=== PATIENT | male | born 1945 | race Caucasian/White ===

== ENCOUNTER → 2020-12-05 | Outpatient (CLI) | payer MEDICARE, BC ==
[2020-12-05 15:20] LABS: Basophils # (A) 0.1 k/uL (0-0.2); Basophils % (A) 1 %; Eosinophils # (A) 0.2 k/uL (0-0.7); Eosinophils % (A) 3 %; HCT 43.5 % (39.0-53.0); HGB 14.7 gm/dL (13.0-17.5); Lymphocytes # (A) 2.1 k/uL (1.0-4.8); Lymphocytes % (A) 30 %; MCH 30.7 pg (25.0-35.0); MCHC 33.9 g/dL (31.0-37.0); MCV 90.5 fL (80.0-100.0); Mean Platelet Volume 8.1; Monocytes # (A) 0.4 k/uL (0-1.0); Monocytes % (A) 6 %; Neutrophils # (A) 4.2 k/uL (1.3-7.7); Neutrophils % (A) 59 %; Platelet Count 176 k/uL (150-450); WBC 7.1 k/uL (3.8-10.6)
[2020-12-05 15:29] LABS: Potassium 4.1 mmol/L (3.5-5.1)
== END | disposition home or self-care (01) ==
LOC: LABPAT 14:41
PROVIDERS: ATTEND Surgery
DX: Z01.818 Encounter for other preprocedural examination (principal); I74.3 Embolism and thrombosis of arteries of the lower extremities
CPT/HCPCS: 80051; 82565; 84520; 85025

== ENCOUNTER → 2020-12-19 | Day surgery (SDC) | payer MEDICARE, BC, OTHER ==
[2020-12-14 13:23] VITALS: BMI 33.9
[~2020-12-19] MED LIST: ALPRAZolam 0.25 MG TAB PO PRN; ASPIRIN 325 MG TAB PO PRN; HEPARIN SODIUM 1,000 UN/ML (10ML VL) ONE; INSULIN ASPART (NovoLOG) 100 UNIT/ML VIAL SQ ONE; IOPAMIDOL-250 100ML BTL INTRAARTER ONE; LIDOCAINE 1% INJ 10MG/ML (20 ML MDV) ONE; LIDOCAINE 1% INJ 10MG/ML (20 ML MDV) SQ ONE; SODIUM CHLORIDE 0.9% 1,000 ML IV ONE; SODIUM CHLORIDE 0.9% 1,000 ML in EMPTY BAG 1 BAG IV ONE; fentaNYL (PF) 50 MCG/ML 2 ML AMP IVP ONE; fentaNYL (PF) 50 MCG/ML 2 ML AMP ONE
[2020-12-19 06:21] LABS: Glucose,Whole Blood 261 mg/dL (75-99)
[2020-12-19 06:31] VITALS: RESP 16; TEMP 98.7
[2020-12-19] MEDS: MIDAZOLAM 2 MG/2 ML VIAL IVP ONE ×2 (07:30→07:41)
--- NOTE | 2020-12-19 08:45 | P.OP ---
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 with reconstitution at the anterior tibial artery 2 vessel runoff to the ankle Procedure(s) Performed: Aortagram with right lower extremity selective iliofemoral and tibial angiograms 2nd order catheter placement Ultrasound guided left common femoral artery access Percutaneous closure of left common femoral artery access with Vascade Anesthesia: local, other (sedation x 30mins) Surgeon: Moy Pollard Estimated Blood Loss (ml): 5 Pathology: none sent Condition: stable Disposition: PACU Indications for Procedure: 75-year-old gentleman who presented to the office secondary to right lower extremity pain with ambulation. Patient states he is unable to walk greater than 100 feet without severe cramping in his calf and pain. He did have previous workup and attempted revascularization at a different hospital a couple months ago without success. He states he would like another opinion and was told that he needs a bypass. His ABIs demonstrated significant disease in the right lower extremity with 0.5 measurements. He presents today for angiogram and possible revascularization. Operative Findings: Aorta: Patent at the bifurcation without any significant atherosclerotic disease or stenosis. Iliac: Bilateral common iliac and internal iliac arteries were patent without any significant calcification or atherosclerotic disease. The right external iliac artery does have a small area of dense calcification and mild stenosis measuring 20%. The left external iliac artery is patent without significant disease. Femoral: Bilateral common femoral arteries are patent with posterior calcification noted on the right with stenosis measuring up to 30%. The profundus femoris bilaterally are patent and the superficial femoral artery bilaterally has some calcific disease but is patent at the takeoff. The right superficial femoral artery does occlude midway through the thigh and reconstitution noted at the superficial femoral but the artery was dilated and likely dissected there is also another occlusion at the popliteal and this doesn't reconstitute until below the knee at the anterior tibial and posterior tibial arteries. There is large amount of collateralization noted throughout the right thigh. Popliteal: Right popliteal artery is occluded Tibials: Right anterior tibial artery and posterior tibial artery reconstitution noted with flow to the ankle. There is mild atherosclerotic disease noted throughout but difficult to delineate due to lack of contrast. Description of Procedure: Operative narrative: After written informed consent was obtained the patient all risks benefits competitions were described the patient is brought to the [facility] and laid in a supine position. The area of the left groin was prepped and draped in the usual sterile fashion. Local anesthesia with moderate sedation was performed with continuous pulse ox monitoring and EKG monitoring. Utilizing ultrasound the left common femoral artery was visualized and shown to be patent without any significant plaque. Utilizing a multipurpose needle under ultrasound guidance the artery was accessed. Guidewire was placed followed by 6-[place] sheath. 035 Glidewire was then placed into the aorta followed by a rim catheter. Angiogram was then obtained of the aorta. Catheter was then placed into the right common iliac artery and 035 Glidewire was placed followed by a quick cross catheter due to the tortuosity of the vessels in order to get across into the right common iliac artery. Selective angiogram was then obtained of the right lower extremity iliofemoral, femoral popliteal and tibials. Due to the extent of the disease and reconstitution right at a bifurcation it was determined that patient would likely need a bypass and therefore no attempts to cross the lesion and revascularize was performed. Once completed all guidewires, catheters and sheaths were removed and Vascade closure device esd placed without issue and pressure was placed for hemostasis. Patient tolerated procedure well was sent to PACU for recovery Plan - Discharge Summary Discharge Rx Participant: No New Discharge Prescriptions: No Action Clopidogrel [Plavix] 75 mg PO DAILY amLODIPine [Norvasc] 10 mg PO DAILY Levothyroxine Sodium [Synthroid] 200 mcg PO DAILY Atorvastatin [Lipitor] 80 mg PO HS glipiZIDE [Glucotrol] 20 mg PO BID Gabapentin [Neurontin] 300 mg PO TID Discharge Medication List Atorvastatin [Lipitor] 80 mg PO HS 12/14/20 [History] Clopidogrel [Plavix] 75 mg PO DAILY 12/14/20 [History] Gabapentin [Neurontin] 300 mg PO TID 12/14/20 [History] Levothyroxine Sodium [Synthroid] 200 mcg PO DAILY 12/14/20 [History] amLODIPine [Norvasc] 10 mg PO DAILY 12/14/20 [History] glipiZIDE [Glucotrol] 20 mg PO BID 12/14/20 [History] Follow up Appointment(s)/Referral(s): Moy Pollard DO [STAFF PHYSICIAN] - 1 Week Patient Instructions/Handouts: Moderate Sedation (DC), Angiogram (DC) Activity/Diet/Wound Care/Special Instructions: No lifting/pushing/pulling greater than 10 lbs for 3 days. Avoid frequent use of full flight stairs for 2 days. You may shower tomorrow. No soaking in water for 3 days (such as tub or swim). You may drive . Discharge Disposition: HOME SELF-CARE
[2020-12-19 11:04] VITALS: BP 145/67; PULSE 64
--- NOTE | 2020-12-20 11:14 | IR ---
Fluoroscopy HISTORY: Peripheral vascular occlusive disease 3.4 minutes fluoroscopy time supplied to the referring clinician. 230 intraoperative C-arm images do cument the procedure. See dictated report from vascular surgery.
== END | disposition home or self-care (01) ==
LOC: CATHCVL 05:51
PROVIDERS: ATTEND Surgery
DX: I70.211 Atherosclerosis of native arteries of extremities with intermittent claudication, right leg (principal); I70.92 Chronic total occlusion of artery of the extremities; I77.1 Stricture of artery; E11.51 Type 2 diabetes mellitus with diabetic peripheral angiopathy without gangrene; I10 Essential (primary) hypertension; Z79.84 Long term (current) use of oral hypoglycemic drugs; Z79.02 Long term (current) use of antithrombotics/antiplatelets; Z79.890 Hormone replacement therapy; Z79.899 Other long term (current) drug therapy
CPT/HCPCS: 36245; 75625; 75716; 76937; 87635; C1894; C1769 ×3; C1887; C1760; J2250; J2001; J3010; Q9966

== ENCOUNTER → 2022-06-17 | Outpatient (CLI) | payer MEDICARE, BC, OTHER ==
--- NOTE | 2022-06-17 15:34 | US ---
EXAMINATION TYPE: US kidneys/renal and bladder DATE OF EXAM: 06/17/2022 COMPARISON: NONE CLINICAL HISTORY: N18.9 CHRONIC KIDNEY DISEASE. Abnormal labs. No pain. EXAM MEASUREMENTS: Right Kidney: 10.4 x 5.7 x 6.0 cm Left Kidney: 10.9 x 4.7 x 5.9 cm Right Kidney: No hydronephrosis or masses seen . No shadowing calculi. Left Kidney: Inferior lateral cyst measuring 1.2 x 1.1 x 0.8 cm . No contour deforming solid mass. N o shadowing calculi. Bladder: distended, anechoic Bilateral Jets not seen Incidental finding: Right liver both cyst- 7.0 x 6.8 x 7.5 cm 1. IMPRESSION: 2. No hydronephrosis or shadowing renal calculi. 3. Left renal cyst. 4. Hepatic cyst.
== END | disposition home or self-care (01) ==
LOC: RADUSWWP 14:50
DX: N18.9 Chronic kidney disease, unspecified (principal)
CPT/HCPCS: 76770

== ENCOUNTER 2023-03-31 10:19 | Inpatient (IN) | payer OTHER, MEDICARE ==
--- NOTE | 2023-03-31 11:01 | ED ---
General Adult HPI - General Chief complaint: Extremity Injury, Lower Stated complaint: rt foot toe wound Time Seen by Provider: 03/31/23 10:44 Source: patient, family, RN notes reviewed Mode of arrival: ambulatory Limitations: no limitations - History of Present Illness Initial comments: 77-year-old male presents emergency Department chief complaint of right foot toe, foot pain, infection. Patient states that he is scheduled for bypass surgery on his right leg and amputation of his fifth digit. Patient states that initially started having a blister and which was debrided by Dr. Pollard and was healing well but then developed worsening symptoms. They attempted to place a stent 2 weeks ago at [place]. Patient was told that he would need bypass on his right leg and amputation of his fifth digit Patient states he's now developed worsening pain, redness, deterioration of his toe. He states there is a foul odor. Patient has a known diabetic. - Related Data Home Medications Medication Instructions Recorded Confirmed Atorvastatin [Lipitor] 80 mg PO HS 12/14/20 12/19/20 Clopidogrel [Plavix] 75 mg PO DAILY 12/14/20 12/14/20 Gabapentin [Neurontin] 300 mg PO TID 12/14/20 12/19/20 Levothyroxine Sodium [Synthroid] 200 mcg PO DAILY 12/14/20 12/19/20 amLODIPine [Norvasc] 10 mg PO DAILY 12/14/20 12/19/20 glipiZIDE [Glucotrol] 20 mg PO BID 12/14/20 12/19/20 Allergies Allergy/AdvReac Type Severity Reaction Status Date / Time No Known Allergies Allergy Verified 03/31/23 10:39 Review of Systems ROS Statement: Those systems with pertinent positive or pertinent negative responses have been documented in the HPI. ROS Other: All systems not noted in ROS Statement are negative. Past Medical History Past Medical History: Coronary Artery Disease (CAD), Diabetes Mellitus, Hyperlipidemia, Hypertension, Neurologic Disorder, Renal Disease, Vascular Disorder Additional Past Medical History / Comment(s): kidney issues r/t past use of metformin. neuropathy feet History of Any Multi-Drug Resistant Organisms: None Reported Past Surgical History: Appendectomy, Coronary Bypass/CABG Additional Past Surgical History / Comment(s): triple bypass 2018. aortic valve replacement 2018 Past Anesthesia/Blood Transfusion Reactions: Postoperative Nausea & Vomiting (PONV) Past Psychological History: No Psychological Hx Reported Smoking Status: Former smoker Past Alcohol Use History: Occasional Past Drug Use History: None Reported General Exam Limitations: no limitations General appearance: alert, in no apparent distress Head exam: Present: atraumatic, normocephalic, normal inspection Neck exam: Present: normal inspection. Absent: tenderness, meningismus, lymphadenopathy Respiratory exam: Present: normal lung sounds bilaterally. Absent: respiratory distress, wheezes, rales, rhonchi, stridor Cardiovascular Exam: Present: regular rate, normal rhythm, normal heart sounds. Absent: systolic murmur, diastolic murmur, rubs, gallop, clicks Extremities exam: Present: other (Right foot fifth digit there is gangrenous changes, surrounding erythema, tenderness with palpation in distal metatarsal region) Course Vital Signs 03/31/23 10:33 Temperature 99.0 F Pulse Rate 71 Respiratory 18 Rate Blood Pressure 152/71 O2 Sat by Pulse 96 Oximetry EKG Findings - EKG Comments: EKG Findings:: EKG performed at 11:28 normal sinus rhythm with a rate of 67 SD 190 QRS 76 QT/QTC 398/420 - EKG Results: EKG: interpreted by ALEXI Medical Decision Making - Medical Decision Making Was pt. sent in by a medical professional or institution (, PA, CRYOGENICS REPAIRER, urgent care, hospital, or intermediate...) When possible be specific @ -No Did you speak to anyone other than the patient for history (EMS, parent, family, police, friend...)? What history was obtained from this source @ -No Did you review nursing and triage notes (agree or disagree)? Why? @ -I reviewed and agree with nursing and triage notes Were old charts reviewed (outside hosp., previous admission, EMS record, old EKG, old radiological studies, urgent care reports/EKG's, intermediate records)? Report findings @ -No old charts were reviewed Differential Diagnosis (chest pain, altered mental status, abdominal pain women, abdominal pain men, vaginal bleeding, weakness, fever, dyspnea, syncope, headache, dizziness, GI bleed, back pain, seizure, CVA, palpatations, mental health, musculoskeletal)? @ -This, gangrene, osteomyelitis EKG interpreted by me (3pts min.). @ -As above X-rays interpreted by me (1pt min.). @ -X-ray foot shows osteomyelitis changes of the fifth digit CT interpreted by me (1pt min.). @ -None done U/S interpreted by me (1pt. min.). @ -None done What testing was considered but not performed or refused? (CT, X-rays, U/S, labs)? Why? @ -None What meds were considered but not given or refused? Why? @ -None Did you discuss the management of the patient with other professionals (professionals i.e. DrSammi, PA, CRYOGENICS REPAIRER, lab, RT, psych nurse, hospice social worker, sap integration architect, teacher, engineering officer, rn case manager)? Give summary @ -I did discuss case with hospitalist and vascular surgery. Was smoking cessation discussed for >3mins.? @ -No Was critical care preformed (if so, how long)? @ -No Were there social determinants of health that impacted care today? How? (Homelessness, low income, unemployed, alcoholism, drug addiction, transportation, low edu. Level, literacy, decrease access to med. care, custodial, rehab)? @ -No Was there de-escalation of care discussed even if they declined (Discuss DNR or withdrawal of care, Hospice)? DNR status @ -No What co-morbidities impacted this encounter? (DM, HTN, Smoking, COPD, CAD, Cancer, CVA, ARF, Chemo, Hep., AIDS, mental health diagnosis, sleep apnea, morbid obesity)? @ -Diabetes, renal disease, hypertension Was patient admitted / discharged? Hospital course, mention meds given and route, prescriptions, significant lab abnormalities, going to OR and other perti nent info. @ -Admitted patient has evidence of osteomyelitis, cellulitis. Patient does have gangrene of the digit. Patient started on dual antibiotic therapy. Patient will be admitted to medicine with vascular consult. Undiagnosed new problem with uncertain prognosis? @ -No Drug Therapy requiring intensive monitoring for toxicity (Heparin, Nitro, Insulin, Cardizem)? @ -No Were any procedures done? @ -No Diagnosis/symptom? @ -Osteomyelitis, gangrene digit Acute, or Chronic, or Acute on Chronic? @ -Acute Uncomplicated (without systemic symptoms) or Complicated (systemic symptoms)? @ -Complicated. Side effects of treatment? @ -No Exacerbation, Progression, or Severe Exacerbation? @ -No Poses a threat to life or bodily function? How? (Chest pain, [place], CA, pneumonia, PE, COPD, DKA, ARF, appy, cholecystitis, CVA, Diverticulitis, Homicidal, Suicidal, threat to staff... and all critical care pts) @ -No - Lab Data Result diagrams: 03/31/23 11:24 03/31/23 11:24 Lab Results 03/31/23 03/31/23 03/31/23 Range/Units 11:24 11:24 11:24 WBC 10.6 (3.8-10.6) k/uL RBC 4.38 (4.30-5.90) m/uL Hgb 13.5 (13.0-17.5) gm/dL Hct 40.2 (39.0-53.0) % MCV 91.7 (80.0-100.0) fL MCH 30.8 (25.0-35.0) pg MCHC 33.6 (31.0-37.0) g/dL RDW 15.5 (11.5-15.5) % Plt Count 159 (150-450) k/uL MPV 8.8 Neutrophils % 75 % Lymphocytes % 14 % Monocytes % 6 % Eosinophils % 2 % Basophils % 1 % Neutrophils # 7.9 H (1.3-7.7) k/uL Lymphocytes # 1.4 (1.0-4.8) k/uL Monocytes # 0.7 (0-1.0) k/uL Eosinophils # 0.2 (0-0.7) k/uL Basophils # 0.1 (0-0.2) k/uL PT 9.7 (9.0-12.0) sec INR 0.9 (<1.2) APTT 23.8 (22.0-30.0) sec Sodium 138 (137-145) mmol/L Potassium 4.9 (3.5-5.1) mmol/L Chloride 106 (98-107) mmol/L Carbon Dioxide 21 L (22-30) mmol/L Anion Gap 11 mmol/L BUN 30 H (9-20) mg/dL Creatinine 1.79 H (0.66-1.25) mg/dL Est GFR (CKD-EPI)AfAm 41 (>60 ml/min/1.73 sqM) Est GFR (CKD-EPI)NonAf 36 (>60 ml/min/1.73 sqM) Glucose 132 H (74-99) mg/dL Plasma Lactic Acid Oz (0.7-2.0) mmol/L Calcium 9.2 (8.4-10.2) mg/dL Total Bilirubin 0.7 (0.2-1.3) mg/dL AST 23 (17-59) U/L ALT 23 (4-49) U/L Alkaline Phosphatase 91 (38-126) U/L C-Reactive Protein 2.8 H (<1.0) mg/dL Total Protein 7.2 (6.3-8.2) g/dL Albumin 4.2 (3.5-5.0) g/dL 03/31/23 Range/Units 11:24 WBC (3.8-10.6) k/uL RBC (4.30-5.90) m/uL Hgb (13.0-17.5) gm/dL Hct (39.0-53.0) % MCV (80.0-100.0) fL MCH (25.0-35.0) pg MCHC (31.0-37.0) g/dL RDW (11.5-15.5) % Plt Count (150-450) k/uL MPV Neutrophils % % Lymphocytes % % Monocytes % % Eosinophils % % Basophils % % Neutrophils # (1.3-7.7) k/uL Lymphocytes # (1.0-4.8) k/uL Monocytes # (0-1.0) k/uL Eosinophils # (0-0.7) k/uL Basophils # (0-0.2) k/uL PT (9.0-12.0) sec INR (<1.2) APTT (22.0-30.0) sec Sodium (137-145) mmol/L Potassium (3.5-5.1) mmol/L Chloride (98-107) mmol/L Carbon Dioxide (22-30) mmol/L Anion Gap mmol/L BUN (9-20) mg/dL Creatinine (0.66-1.25) mg/dL Est GFR (CKD-EPI)AfAm (>60 ml/min/1.73 sqM) Est GFR (CKD-EPI)NonAf (>60 ml/min/1.73 sqM) Glucose (74-99) mg/dL Plasma Lactic Acid Oz 0.9 (0.7-2.0) mmol/L Calcium (8.4-10.2) mg/dL Total Bilirubin (0.2-1.3) mg/dL AST (17-59) U/L ALT (4-49) U/L Alkaline Phosphatase (38-126) U/L C-Reactive Protein (<1.0) mg/dL Total Protein (6.3-8.2) g/dL Albumin (3.5-5.0) g/dL Disposition Clinical Impression: Acute osteomyelitis of right foot, Gangrene of toe of right foot Disposition: ADMITTED IP TO THIS [facility] Condition: Fair Referrals: [facility],Clinic [Primary Care Provider] - 1-2 days Time of Disposition: 12:18
[2023-03-31 11:31] LABS: Basophils # (A) 0.1 k/uL (0-0.2); Basophils % (A) 1 %; Eosinophils # (A) 0.2 k/uL (0-0.7); Eosinophils % (A) 2 %; HCT 40.2 % (39.0-53.0); HGB 13.5 gm/dL (13.0-17.5); Lymphocytes # (A) 1.4 k/uL (1.0-4.8); Lymphocytes % (A) 14 %; MCH 30.8 pg (25.0-35.0); MCHC 33.6 g/dL (31.0-37.0); MCV 91.7 fL (80.0-100.0); Mean Platelet Volume 8.8; Monocytes # (A) 0.7 k/uL (0-1.0); Monocytes % (A) 6 %; Neutrophils # (A) 7.9 k/uL (1.3-7.7); Neutrophils % (A) 75 %; Platelet Count 159 k/uL (150-450); RBC 4.38 m/uL (4.30-5.90); RDW 15.5 % (11.5-15.5); WBC 10.6 k/uL (3.8-10.6)
[2023-03-31 11:49] LABS: INR 0.9 (<1.2); Partial Thromboplastin Time 23.8 sec (22.0-30.0); Prothrombin Time 9.7 sec (9.0-12.0)
[2023-03-31 11:50] LABS: ALT 23 U/L (4-49); AST 23 U/L (17-59); African American GFR (CKD) 41 (>60 ml/min/1.73 sqM); Albumin 4.2 g/dL (3.5-5.0); Alkaline Phosphatase 91 U/L (38-126); Anion Gap 11 mmol/L; Blood Urea Nitrogen 30 mg/dL (9-20); C Reactive Protein 2.8 mg/dL (<1.0); Calcium 9.2 mg/dL (8.4-10.2); Carbon Dioxide 21 mmol/L (22-30); Chloride 106 mmol/L (98-107); Glucose 132 mg/dL (74-99); Non-African American GFR(CKD) 36 (>60 ml/min/1.73 sqM); Potassium 4.9 mmol/L (3.5-5.1); Sodium 138 mmol/L (137-145); Total Bilirubin 0.7 mg/dL (0.2-1.3); Total Protein 7.2 g/dL (6.3-8.2)
--- NOTE | 2023-03-31 12:04 | XR ---
EXAMINATION TYPE: XR foot complete RT DATE OF EXAM: 03/31/2023 COMPARISON: NONE HISTORY: Pain swelling TECHNIQUE: Three views are submitted. FINDINGS: The osseous structures are intact. There is no acute fracture or dislocation. Mild first MTP joint . . There is diffuse soft tissue edema involving the distal margin of what localized in mineralization and. IMPRESSION: 1. Soft tissue edema of the fifth digit with localized demineralization distal phalanx fifth digit bright spicious for osteomyelitis.
[2023-03-31] MEDS ORDERED: VANCOMYCIN IV PER PHARMACY 1 EACH MISC MISCELLANE PRN (12:12)
[2023-03-31] MEDS ORDERED: NALOXONE 0.4 MG/ML 1 ML VIAL IV PRN (12:18)
[2023-03-31] MEDS ORDERED: VANCOMYCIN 1,500 MG in SODIUM CHLORIDE 0.9% 500 ML 500 ML IVPB STA (12:21)
[2023-03-31] MEDS: PIPERACILLIN-TAZOBACTAM 3.375 GM in SODIUM CHLORIDE 0.9% 100 ML IVPB SCH ×2 (12:22→23:45)
[2023-03-31] MEDS: HYDROcodone/APAP 5-325MG 1 EACH TAB PO PRN ×2 (12:27→18:56)
[2023-03-31 12:43] LABS: Erythrocyte Sedimentation Rate 62 mm/hr (0-15)
--- NOTE | 2023-03-31 16:00 | P.GSCN ---
History of Present Illness Consult date: 03/31/23 Reason for Consult: Gangrene, osteomyelitis Requesting physician: Amos Hatch History of present illness: This 69-year-old male known to Dr. Pollard for her peripheral arterial disease. Patient has a history of right lower extremity claudication and fifth toe gangrene. Patient has a past medical history including coronary artery disease status post CABG, peripheral arterial disease, diabetes mellitus, hyperlipi demia, hypertension, and chronic renal disease. Apparently patient had seen Dr. Pollard a couple weeks ago and [facility] and underwent a possible angiogram for possible stenting however patient states he was unable to do things a stent and recommend bypass surgery with fifth toe amputation to follow. Patient states that he has been having increased pain in the fifth toe and swelling and was concerned so came to the emergency department for further evaluation. I he's not had any drainage, states no fevers, or chills. Denies any shortness of breath, chest pain, abdominal pain, nausea or vomiting. He states he's been awaiting ultrasound for vein mapping at the office as [facility] Patient is afebrile. WBC 10.6 hemoglobin 13.5 platelet count 159,000 and sodium 138 potassium 4.9 BUN 30 creatinine 1.7 CRP 2.8 area patient was started on IV vancomycin and Zosyn. Vascular surgery was consulted for gangrene, osteomyelitis of right fifth toe Review of Systems A 14 point review systems was completed all pertinent positives and negatives as stated in the HPI. Past Medical History Past Medical History: Coronary Artery Disease (CAD), Diabetes Mellitus, Hyperlipidemia, Hypertension, Neurologic Disorder, Renal Disease, Vascular Disorder Additional Past Medical History / Comment(s): kidney issues r/t past use of metformin. neuropathy feet History of Any Multi-Drug Resistant Organisms: None Reported Past Surgical History: Appendectomy, Coronary Bypass/CABG Additional Past Surgical History / Comment(s): triple bypass 2018. aortic valve replacement 2018 Past Anesthesia/Blood Transfusion Reactions: Postoperative Nausea & Vomiting (P ONV) Past Psychological History: No Psychological Hx Reported Smoking Status: Former smoker Past Alcohol Use History: Occasional Past Drug Use History: None Reported Medications and Allergies Home Medications Medication Instructions Recorded Confirmed Type Clopidogrel [Plavix] 75 mg PO HS 12/14/20 03/31/23 History Gabapentin [Neurontin] 300 mg PO TID 12/14/20 03/31/23 History amLODIPine [Norvasc] 10 mg PO DAILY 12/14/20 03/31/23 History glipiZIDE [Glucotrol] 20 mg PO BID-W/MEALS 12/14/20 03/31/23 History Empagliflozin [Jardiance] 25 mg PO HS 03/31/23 03/31/23 History Ezetimibe [Zetia] 10 mg PO DAILY 03/31/23 03/31/23 History Levothyroxine Sodium [Synthroid] 88 mcg PO DAILY 03/31/23 03/31/23 History Metoprolol Succinate (ER) [Toprol 12.5 mg PO HS 03/31/23 03/31/23 History XL] Rosuvastatin [Crestor] 20 mg PO HS 03/31/23 03/31/23 History lisinopriL [Zestril] 40 mg PO DAILY 03/31/23 03/31/23 History Allergies Allergy/AdvReac Type Severity Reaction Status Date / Time No Known Allergies Allergy Verified 03/31/23 13:13 Surgical - Exam Vital Signs Temp Pulse Resp BP Pulse Ox 99.0 F 71 18 152/71 96 03/31/23 10:33 03/31/23 10:33 03/31/23 10:33 03/31/23 10:33 03/31/23 10:33 General appearance: The patient is alert, oriented, appears in no acute distress. HET: Head is normocephalic and atraumatic. Pupils are equal and reactive. Neck: Supple. Heart: Regular. Lungs: Equal expansion, normal respiratory effort. Abdomen: Soft, nontender, nondistended. Extremities: Bilateral lower extremity edema. Right fifth toe with dry gangrene, mild surrounding erythema and swelling. Good capillary refill. Neurological: No focal deficits. Strength and sensation are grossly intact. Results - Labs 03/31/23 11:24 03/31/23 11:24 Abnormal Lab Results - Last 24 Hours (Table) 03/31/23 03/31/23 Range/Units 11:24 11:24 Neutrophils # 7.9 H (1.3-7.7) k/uL ESR 62 H (0-15) mm/hr Carbon Dioxide 21 L (22-30) mmol/L BUN 30 H (9-20) mg/dL Creatinine 1.79 H (0.66-1.25) mg/dL Glucose 132 H (74-99) mg/dL C-Reactive Protein 2.8 H (<1.0) mg/dL Diabetes panel 03/31/23 Range/Units 11:24 Sodium 138 (137-145) mmol/L Potassium 4.9 (3.5-5.1) mmol/L Chloride 106 (98-107) mmol/L Carbon Dioxide 21 L (22-30) mmol/L BUN 30 H (9-20) mg/dL Creatinine 1.79 H (0.66-1.25) mg/dL Glucose 132 H (74-99) mg/dL Calcium 9.2 (8.4-10.2) mg/dL AST 23 (17-59) U/L ALT 23 (4-49) U/L Alkaline Phosphatase 91 (38-126) U/L Total Protein 7.2 (6.3-8.2) g/dL Albumin 4.2 (3.5-5.0) g/dL Calcium panel 03/31/23 Range/Units 11:24 Calcium 9.2 (8.4-10.2) mg/dL Albumin 4.2 (3.5-5.0) g/dL Pituitary panel 03/31/23 Range/Units 11:24 Sodium 138 (137-145) mmol/L Potassium 4.9 (3.5-5.1) mmol/L Chloride 106 (98-107) mmol/L Carbon Dioxide 21 L (22-30) mmol/L BUN 30 H (9-20) mg/dL Creatinine 1.79 H (0.66-1.25) mg/dL Glucose 132 H (74-99) mg/dL Calcium 9.2 (8.4-10.2) mg/dL Adrenal panel 03/31/23 Range/Units 11:24 Sodium 138 (137-145) mmol/L Potassium 4.9 (3.5-5.1) mmol/L Chloride 106 (98-107) mmol/L Carbon Dioxide 21 L (22-30) mmol/L BUN 30 H (9-20) mg/dL Creatinine 1.79 H (0.66-1.25) mg/dL Glucose 132 H (74-99) mg/dL Calcium 9.2 (8.4-10.2) mg/dL Total Bilirubin 0.7 (0.2-1.3) mg/dL AST 23 (17-59) U/L ALT 23 (4-49) U/L Alkaline Phosphatase 91 (38-126) U/L Total Protein 7.2 (6.3-8.2) g/dL Albumin 4.2 (3.5-5.0) g/dL - Imaging Comments: x-ray of the right foot reporting soft tissue edema of the fifth digit with localized demineralization distal phalanx fifth digit suspicious for osteomyelitis. Assessment and Plan Assessment: 1. Gangrene right fifth toe, with possible osteomyelitis 2. Peripheral arterial disease 3. Diabetes mellitus 4. Coronary artery disease status post CABG 5. Hypertension 6. Hyperlipidemia 7. Chronic renal disease Plan: 1. Continue supportive care 2. Continue IV antibiotics as ordered 3. Further recommendations forthcoming per vascular surgeon Thank you for this consultation, we will continue to follow. The impression and plan of care has been dictated as directed. Dr. Mast I performed a history and examination of this patient, discussed the same with the dictator. I agree with the dictator's note ,documented as a scribe. Any additional findings or plans will be noted.
[2023-03-31] MEDS ORDERED: DEXTROSE 50% SYRINGE 50 ML IVP PRN ×2 (16:30)
--- NOTE | 2023-03-31 16:42 | P.HPIM ---
History of Present Illness H&P Date: 03/31/23 Patient is a 77-year-old male with history of peripheral arterial disease, CAD status post CABG hypertension, diabetes, dyslipidemia, hypothyroidism presenting with worsening right foot fifth digit gangrene. He was recently seen at [facility], and had intervention on right leg. He was recommended to get possible stenting versus bypass surgery with fifth toe amputation. However, he presented back to our ER for worsening pain of right fifth toe and swelling. Denies any fevers, chills, chest pain, shortness of breath, abdominal pain, nausea, vomiting, urinary or bowel complaints. In the ED, temperature was 99, pulse 71, respiratory rate 18, blood pressure 152/71, saturating at 96% on room air. WBC 10.6, hemoglobin 13.5, sodium 138, potassium 4.9, bicarb 21, BUN 30, creatinine 1.79, glucose 132, lactate 0.9. Patient was started on vancomycin and Zosyn. Blood cultures were obtained. Right foot x-ray shows findings consistent with possible osteomyelitis. EKG i ndependently interpreted, shows normal sinus rhythm. Patient being admitted for right foot osteomyelitis. Vascular surgery has been consulted. Pertinent positives and negatives as discussed in HPI, a complete review of systems was performed and all other systems are negative. Patient seen and examined at bedside. Vital signs reviewed General: nontoxic, no distress, appears at stated age Derm: warm, dry, right fifth digit dry gangrene with surrounding edema Head: atraumatic, normocephalic, symmetric Eyes: EOMI, no lid lag, anicteric sclera, pupils equal round reactive to light ENT: Nose and ears atraumatic Neck: No thyromegaly, supple Mouth: no lip lesion, mucus membranes moist Cardiovascular: S1S2 reg, no murmur, no edema Lungs: clear to auscultation bilateral, no rhonchi, no rales, no wheeze, no accessory muscle use Abdominal: soft, nontender to palpation, no guarding, no appreciable organomegaly Ext: no gross muscle atrophy, muscle strength muscle strength 5 out of 5 in all 4 extremities, no contractures Neuro: CN II-XII grossly intact Psych: Alert, oriented, appropriate affect Assessment/Plan: Active: Gangrenous right fifth toe, suspected osteomyelitis Peripheral arterial disease Type 2 diabetes -Patient on IV Zosyn and IV vancomycin -Monitor for renal toxicity -Blood cultures pending -Vascular surgery consulted -Continue Plavix and rosuvastatin, and ezetimibe -Pain control with oral Tylenol, and oral Banks as needed -Sliding scale insulin, hold home antidiabetics Chronic: CAD status post CABG Hypertension Dyslipidemia Hypothyroidism The patient is admitted with an anticipated greater than 2 midnight stay as inpatient status for evaluation of right foot osteomyelitis. Surrogate decision-maker: CODE STATUS: Full code DVT prophylaxis: Subcu heparin Anticipated discharge date: Pending clinical course Anticipated discharge place: Pending clinical course A total of 55 minutes was spent on the care of this complex patient more than 50% of the time was spent in counseling and care coordination. Past Medical History Past Medical History: Coronary Artery Disease (CAD), Diabetes Mellitus, Hyperlipidemia, Hypertension, Neurologic Disorder, Renal Disease, Vascular Disorder Additional Past Medical History / Comment(s): kidney issues r/t past use of metformin. neuropathy feet History of Any Multi-Drug Resistant Organisms: None Reported Past Surgical History: Appendectomy, Coronary Bypass/CABG Additional Past Surgical History / Comment(s): triple bypass 2018. aortic valve replacement 2018 Past Anesthesia/Blood Transfusion Reactions: Postoperative Nausea & Vomiting (PONV) Past Psychological History: No Psychological Hx Reported Smoking Status: Former smoker Past Alcohol Use History: Occasional Additional Past Alcohol Use History / Comment(s): quit smoking 2005 Past Drug Use History: None Reported Medications and Allergies Home Medications Medication Instructions Recorded Confirmed Type Clopidogrel [Plavix] 75 mg PO HS 12/14/20 03/31/23 History Gabapentin [Neurontin] 300 mg PO TID 12/14/20 03/31/23 History amLODIPine [Norvasc] 10 mg PO DAILY 12/14/20 03/31/23 History glipiZIDE [Glucotrol] 20 mg PO BID-W/MEALS 12/14/20 03/31/23 History Empagliflozin [Jardiance] 25 mg PO HS 03/31/23 03/31/23 History Ezetimibe [Zetia] 10 mg PO DAILY 03/31/23 03/31/23 History Levothyroxine Sodium [Synthroid] 88 mcg PO DAILY 03/31/23 03/31/23 History Metoprolol Succinate (ER) [Toprol 12.5 mg PO HS 03/31/23 03/31/23 History XL] Rosuvastatin [Crestor] 20 mg PO HS 03/31/23 03/31/23 History lisinopriL [Zestril] 40 mg PO DAILY 03/31/23 03/31/23 History Allergies Allergy/AdvReac Type Severity Reaction Status Date / Time No Known Allergies Allergy Verified 03/31/23 13:13 Physical Exam Vitals: Vital Signs Temp Pulse Pulse Resp BP BP Pulse Ox 03/31/23 16:32 97.9 F 73 18 158/70 95 03/31/23 15:31 65 18 166/76 98 03/31/23 12:22 66 18 161/69 98 03/31/23 10:33 99.0 F 71 18 152/71 96 Intake and Output 03/31/23 03/31/23 03/31/23 06:59 14:59 22:59 Other: Weight 93.894 kg 93.894 kg Results CBC & Chem 7: 03/31/23 11:24 03/31/23 11:24 Labs: Abnormal Lab Results - Last 24 Hours (Table) 03/31/23 03/31/23 Range/Units 11:24 11:24 Neutrophils # 7.9 H (1.3-7.7) k/uL ESR 62 H (0-15) mm/hr Carbon Dioxide 21 L (22-30) mmol/L BUN 30 H (9-20) mg/dL Creatinine 1.79 H (0.66-1.25) mg/dL Glucose 132 H (74-99) mg/dL C-Reactive Protein 2.8 H (<1.0) mg/dL Thrombosis Risk Factor Assmnt - Choose All That Apply Any of the Below Risk Factors Present?: Yes Other Risk Factors: Yes Each Risk Factor Represents 3 Points: Age 75 years or older Other congenital or acquired thrombophilia - If yes, enter type in comment: No Thrombosis Risk Factor Assessment Total Risk Factor Score: 3 Thrombosis Risk Factor Assessment Level: Moderate Risk
[2023-03-31 17:22] LABS: Glucose,Whole Blood 259 mg/dL (70-110)
[2023-03-31] MEDS: INSULIN ASPART (NovoLOG) 100 UNIT/ML VIAL SQ SCH ×2 (18:05→21:07)
[2023-03-31 20:06] LABS: Glucose,Whole Blood 281 mg/dL (70-110)
[2023-03-31] MEDS: GABAPENTIN 300 MG CAP PO SCH (21:07)
[2023-03-31] MEDS: CLOPIDOGREL 75 MG TAB PO SCH (21:07)
[2023-03-31] MEDS: METOPROLOL SUCCINATE (ER) 25 MG TAB.ER.24H PO SCH (21:07)
[2023-03-31] MEDS: ATORVASTATIN 40 MG TAB PO SCH (21:07)
[2023-03-31] MEDS: HEPARIN SODIUM,PORCINE/PF 5,000 UNIT/0.5 ML SYRINGE SQ SCH (23:45)
[2023-04-01] MEDS: HYDROcodone/APAP 5-325MG 1 EACH TAB PO PRN ×2 (02:53→08:43)
[2023-04-01] MEDS: LEVOTHYROXINE 88 MCG TAB PO SCH (05:35)
[2023-04-01 06:26] LABS: African American GFR (CKD) 45 (>60 ml/min/1.73 sqM); Anion Gap 8 mmol/L; Blood Urea Nitrogen 27 mg/dL (9-20); Calcium 8.6 mg/dL (8.4-10.2); Carbon Dioxide 23 mmol/L (22-30); Chloride 110 mmol/L (98-107); Glucose 87 mg/dL (74-99); Non-African American GFR(CKD) 39 (>60 ml/min/1.73 sqM); Potassium 4.6 mmol/L (3.5-5.1); Sodium 141 mmol/L (137-145)
[2023-04-01 07:32] LABS: Glucose,Whole Blood 90 mg/dL (70-110)
[2023-04-01] MEDS: INSULIN ASPART (NovoLOG) 100 UNIT/ML VIAL SQ SCH ×3 (07:42→18:37)
[2023-04-01] MEDS: HEPARIN SODIUM,PORCINE/PF 5,000 UNIT/0.5 ML SYRINGE SQ SCH ×2 (08:44→17:29)
--- NOTE | 2023-04-01 08:44 | US ---
EXAMINATION TYPE: US vein mapping BILAT DATE OF EXAM: 04/01/2023 8:33 AM COMPARISON: NONE CLINICAL INDICATION: Male, 77 years old with history of for RLE bypass; Left GSV removed SIDE PERFORMED: Right TECHNIQUE: Lower extremity saphenous vein is examined and measured utilizing real time linear array sonography. DUPLEX FINDINGS: Greater Saphenous: Color flow seen Lesser Saphenous: Color flow seen Measurements in mm: Right Greater Saphenous: Groin: 8.1 x 9.0 mm High Thigh: 5.1 x 6.1 mm Mid Thigh: 4.9 x 5.8 mm Above Knee: 4.4 x 5.0 mm Knee: 4.3 x 4.7 mm Below Knee: 3.7 x 4.5 mm Mid Calf: 3.1 x 3.8 mm At Ankle: 2.6 x 3.4 mm IMPRESSION: 1. Bilateral GSV measurements listed above. 2. Performing surgeon to determine viability as conduit.
[2023-04-01 09:03] LABS: Basophils # (A) 0.11 X 10*3/uL (0.00-0.10); Basophils % (A) 1.6 %; Eosinophils # (A) 0.24 X 10*3/uL (0.04-0.35); Eosinophils % (A) 3.5 %; HCT 38.6 % (39.6-50.0); Lymphocytes # (A) 1.43 X 10*3/uL (0.90-5.00); Lymphocytes % (A) 20.9 %; MCH 29.3 pg (27.0-32.0); MCHC 31.1 d/dL (32.0-37.0); MCV 94.4 FL (80.0-97.0); Mean Platelet Volume 10.7 FL (9.5-12.2); Monocytes # (A) 0.81 X 10*3/uL (0.20-1.00); Monocytes % (A) 11.8 %; NRBC Per 100 WBC 0 X 10*3/uL (0.00-0.01); Neutrophils # (A) 4.23 X 10*3/uL (1.80-7.70); Neutrophils % (A) 61.9 %; Platelet Count 172 X 10*3/uL (140-440); RBC 4.09 X 10*6/uL (4.40-5.60); RDW 15.1 % (11.5-14.5); WBC 6.84 X 10*3/uL (4.50-10.00)
[2023-04-01] MEDS: lisinopriL 20 MG TAB PO SCH (10:10)
[2023-04-01] MEDS: GABAPENTIN 300 MG CAP PO SCH ×2 (10:10→17:29)
[2023-04-01] MEDS: amLODIPine 10 MG TAB PO SCH (10:10)
[2023-04-01] MEDS: EZETIMIBE 10 MG TAB PO SCH (10:10)
[2023-04-01] MEDS: PIPERACILLIN-TAZOBACTAM 3.375 GM in SODIUM CHLORIDE 0.9% 100 ML IVPB SCH (10:11)
--- NOTE | 2023-04-01 11:00 | P.PN ---
Subjective Progress Note Date: 04/01/23 Principal diagnosis: Right gangrene toe, peripheral arterial disease Patient is seen and examined today as a follow-up. Continues to have pain in that right fifth toe. He is without any complaints of shortness of breath or chest pain. He has been afebrile. Objective - Vital Signs Vital signs: Vital Signs Temp 98.5 F 04/01/23 07:11 Pulse 62 04/01/23 07:11 Resp 18 04/01/23 07:11 BP 132/63 04/01/23 07:11 Pulse Ox 96 04/01/23 07:11 FiO2 Intake & Output 03/31/23 04/01/23 04/01/23 18:59 06:59 18:59 Intake Total 100 Balance 100 Weight 93.894 kg Intake: Intake, IV Titration 100 Amount Piperacillin-Tazobactam 3 100 .375 gm In Sodium Chloride 0.9% 100 ml @ 25 mls/hr IVPB Q8HR [facility] Rx# :[id number] Other: # Voids 1 1 - Exam General appearance: The patient is alert, oriented, appears in no acute distress. HET: Head is normocephalic and atraumatic. Pupils are equal and reactive. Neck: Supple. Heart: Regular. Lungs: Equal expansion, normal respiratory effort. Abdomen: Soft, nontender, nondistended. Extremities: Bilateral lower extremity edema. Right fifth toe with dry gangrene, mild surrounding erythema and swelling. Good capillary refill. Neurological: No focal deficits. Strength and sensation are grossly intact. R - Labs CBC & Chem 7: 04/01/23 05:38 04/01/23 05:38 Labs: Abnormal Lab Results - Last 24 Hours (Table) 03/31/23 03/31/23 03/31/23 Range/Units 11:24 11:24 17:11 Neutrophils # 7.9 H (1.3-7.7) k/uL ESR 62 H (0-15) mm/hr Chloride (98-107) mmol/L Carbon Dioxide 21 L (22-30) mmol/L BUN 30 H (9-20) mg/dL Creatinine 1.79 H (0.66-1.25) mg/dL Glucose 132 H (74-99) mg/dL POC Glucose (mg/dL) 259 H (70-110) mg/dL C-Reactive Protein 2.8 H (<1.0) mg/dL 03/31/23 04/01/23 Range/Units 20:04 05:38 Neutrophils # (1.3-7.7) k/uL ESR (0-15) mm/hr Chloride 110 H (98-107) mmol/L Carbon Dioxide (22-30) mmol/L BUN 27 H (9-20) mg/dL Creatinine 1.66 H (0.66-1.25) mg/dL Glucose (74-99) mg/dL POC Glucose (mg/dL) 281 H (70-110) mg/dL C-Reactive Protein (<1.0) mg/dL Assessment and Plan Assessment: 1. Gangrene right fifth toe, with possible osteomyelitis 2. Peripheral arterial disease, right femoral occlusive disease 3. Diabetes mellitus 4. Coronary artery disease status post CABG 5. Hypertension 6. Hyperlipidemia 7. Chronic renal disease Plan: 1. Continue supportive care 2. Nothing by mouth except for meds 3. Continue IV antibiotics as ordered 4. Vein mapping ordered and reviewed 5. Patient will need medical clearance for surgery 6. Will plan for right femoral to below-knee bypass with in situ vein and fifth toe amputation Thank you for this consultation, we will continue to follow. The impression and plan of care has been dictated as directed. Dr. Pollard I performed a history and examination of this patient, discussed the same with the dictator. I agree with the dictator's note ,documented as a scribe. Any additional findings or plans will be noted.
--- NOTE | 2023-04-01 11:13 | P.PN ---
Subjective Progress Note Date: 04/01/23 Patient is a 77-year-old male with known peripheral arterial disease, coronary artery disease status post CABG, hypertension, diabetes mellitus type 2 on oral medications, dyslipidemia, and multiple other comorbid conditions who presented to the hospital with worsening of his right foot fifth digit pain and odor. Of note patient was recently released seen at [facility] for the same and had an intervention done on his right leg. On arrival to the ER here his initial vital signs were essentially within normal limits. Laboratory analysis was remarkable for BUN 30, creatinine 1.7 at 9 with GFR 36, glucose 132. X-ray of the right foot shows soft tissue edema of the fifth digit with localized demineralization of the fifth phalanx suspicious for osteomyelitis. Patient seen and examined at bedside. He is doing well. He denies any chest pain, shortness of breath. He has not had any recent cough, cold, fever, flu. He has not had any recent chest pain, shortness of breath, or syncope. He is independent in all of his ADLs and IADLs. He does see cardiology and follows with Dr. Willis. He last had a stress test approximately one year ago which he states was normal. He is following up with Dr. Willis approximately every 6 months. Vital signs reviewed General: nontoxic, no distress, appears at stated age Cardiovascular: S1S2 reg, no murmur During: Right fifth toe with necrosis, malodorous, dark in color with desquamation of skin Lungs: CTA bilateral, no rhonchi, no rales , no accessory muscle use Abdominal: soft, nontender to palpation, no guarding, no appreciable organomegaly Ext: no gross muscle atrophy, no edema b/l lower extremities, no contractures Neuro: CN II-XI grossly intact, no focal neuro deficits Psych: Alert, oriented, appropriate affect Assessment/Plan: Severe peripheral arterial disease of the right lower extremity with gangrene of the right fifth toe and probable osteomyelitis -Discussed with vascular surgery nurse practitioner plan is for femoral- popliteal bypass with amputation of the right fifth toe -NSQIP score for femoral-popliteal bypass Only Serious Compllication- Pt 13%, average 16.8% Any complication- pt 19%, aerage 22.2% Cardiac complication- Pt 2%, acerage 2.1% - pt 0%, average 0.9% -Patient has been medically optimized for the proposed surgical procedure. He is at average risk for complications. He may proceed with surgery without any further testing required. This was discussed with patient and significant other at bedside. - Continue with IV Zosyn and IV vancomycin. D #2 Continue with checking creatinine and Vanco trough levels to monitor for renal toxicity. Diabetes mellitus type 2 -A1c 8.1 -Resume SGLT2 Inhibator - SSI - follow BS Hypertension -Follow blood pressures -Continue with metoprolol 12.5 mg at night Chronic: CAD status post CABG Dyslipidemia Hypothyroidism Imaging: None new reviewed. Data Review: T-max in the last 24 hours is 99. Vitals from this morning pulse 62, respirations 18, blood pressure 132/63, O2 sat 96% on room air Labs reviewed remarkable for hemoglobin of 12, chloride 110, BUN 27, creatinine 1.6, A1c 8.1 DVT prophylaxis: Heparin Anticipated discharge date: Pending Clinical course Anticipated discharge place: Pending Clinical course This dictation was prepared using [employer] voice recognition software. Though every attempt is made to correct errors during dictation some may still exist. Objective - Vital Signs Vital signs: Vital Signs Temp 98.5 F 04/01/23 07:11 Pulse 62 04/01/23 07:11 Resp 18 04/01/23 07:11 BP 132/63 04/01/23 07:11 Pulse Ox 96 04/01/23 07:11 FiO2 Intake & Output 03/31/23 04/01/23 04/01/23 18:59 06:59 18:59 Intake Total 100 Balance 100 Weight 93.894 kg Intake: Intake, IV Titration 100 Amount Piperacillin-Tazobactam 3 100 .375 gm In Sodium Chloride 0.9% 100 ml @ 25 mls/hr IVPB Q8HR [facility] Rx# :[id number] Other: # Voids 1 1 - Labs CBC & Chem 7: 04/01/23 05:38 04/01/23 05:38 Labs: Abnormal Lab Results - Last 24 Hours (Table) 03/31/23 03/31/23 03/31/23 Range/Units 11:24 11:24 17:11 RBC (4.40-5.60) X 10*6/uL Hgb (13.0-17.0) d/dL Hct (39.6-50.0) % MCHC (32.0-37.0) d/dL RDW (11.5-14.5) % Neutrophils # 7.9 H (1.3-7.7) k/uL Basophils # (0.00-0.10) X 10*3/uL ESR 62 H (0-15) mm/hr Chloride (98-107) mmol/L Carbon Dioxide 21 L (22-30) mmol/L BUN 30 H (9-20) mg/dL Creatinine 1.79 H (0.66-1.25) mg/dL Glucose 132 H (74-99) mg/dL POC Glucose (mg/dL) 259 H (70-110) mg/dL Hemoglobin A1c (<=6.0) % C-Reactive Protein 2.8 H (<1.0) mg/dL 03/31/23 04/01/23 04/01/23 Range/Units 20:04 05:38 05:38 RBC (4.40-5.60) X 10*6/uL Hgb (13.0-17.0) d/dL Hct (39.6-50.0) % MCHC (32.0-37.0) d/dL RDW (11.5-14.5) % Neutrophils # (1.3-7.7) k/uL Basophils # (0.00-0.10) X 10*3/uL ESR (0-15) mm/hr Chloride 110 H (98-107) mmol/L Carbon Dioxide (22-30) mmol/L BUN 27 H (9-20) mg/dL Creatinine 1.66 H (0.66-1.25) mg/dL Glucose (74-99) mg/dL POC Glucose (mg/dL) 281 H (70-110) mg/dL Hemoglobin A1c 8.1 H (<=6.0) % C-Reactive Protein (<1.0) mg/dL 04/01/23 Range/Units 05:38 RBC 4.09 L (4.40-5.60) X 10*6/uL Hgb 12.0 L (13.0-17.0) d/dL Hct 38.6 L (39.6-50.0) % MCHC 31.1 L (32.0-37.0) d/dL RDW 15.1 H (11.5-14.5) % Neutrophils # (1.3-7.7) k/uL Basophils # 0.11 H (0.00-0.10) X 10*3/uL ESR (0-15) mm/hr Chloride (98-107) mmol/L Carbon Dioxide (22-30) mmol/L BUN (9-20) mg/dL Creatinine (0.66-1.25) mg/dL Glucose (74-99) mg/dL POC Glucose (mg/dL) (70-110) mg/dL Hemoglobin A1c (<=6.0) % C-Reactive Protein (<1.0) mg/dL
[2023-04-01 11:42] LABS: Glucose,Whole Blood 130 mg/dL (70-110)
[2023-04-01] MEDS: VANCOMYCIN 1,500 MG in SODIUM CHLORIDE 0.9% 500 ML 500 ML IVPB SCH (13:40)
[2023-04-01] MEDS ORDERED: LACTATED RINGERS 1,000 ML IV ONE ×3 (15:25→20:56)
[2023-04-01 15:34] LABS: Glucose,Whole Blood 106 mg/dL (70-110)
[2023-04-01] MEDS ORDERED: fentaNYL (PF) 50 MCG/ML 2 ML AMP ONE (16:00)
[2023-04-01] MEDS ORDERED: SUCCINYLCHOLINE CHLORIDE 200 MG/10 ML VIAL IV ONE (16:00)
[2023-04-01] MEDS ORDERED: PROPOFOL 10 MG/ML 20 ML VIAL IV ONE (16:00)
[2023-04-01] MEDS ORDERED: HEPARIN SODIUM,PORCINE 10,000 UNIT/ML 1 ML VIAL ONE (16:00)
[2023-04-01] MEDS ORDERED: PHENYLEPHRINE-0.9% NACL SYG 1,000 MCG/10 ML SYRINGE ONE (16:00)
[2023-04-01] MEDS ORDERED: MIDAZOLAM 2 MG/2 ML VIAL ONE (16:00)
[2023-04-01] MEDS ORDERED: ROCURONIUM 10 MG/ML (5 ML VIAL) IV ONE (16:00)
[2023-04-01] MEDS ORDERED: LIDOCAINE 2% INJ 20 MG/ML (2 ML VIAL) ONE (16:00)
[2023-04-01] MEDS ORDERED: ePHEDrine 50 MG/ML 1 ML VIAL ONE (16:00)
[2023-04-01] MEDS ORDERED: ONDANSETRON 4 MG/2 ML VIAL IVP ONE (16:05)
[2023-04-01] MEDS ORDERED: ONDANSETRON 4 MG/2 ML VIAL ONE (16:05)
[2023-04-01] MEDS ORDERED: THROMBIN (BOVINE) 5,000 UNIT VIAL TOPICAL ONE (16:47)
[2023-04-01] MEDS ORDERED: GELATIN SPONGE,ABSORB (LARGE) 1 EACH SPONGE TOPICAL ONE (16:47)
[2023-04-01] MEDS ORDERED: HEPARIN SODIUM,PORCINE 10,000 UNIT in SODIUM CHLORIDE 0.9% 1,000 ML IRRIGATION ONE (16:49)
[2023-04-01] MEDS ORDERED: ceFAZolin 4 GM in SODIUM CHLORIDE 0.9% 1,000 ML IRRIGATION ONE (16:50)
[2023-04-01 18:54] LABS: Glucose,Whole Blood 114 mg/dL (70-110)
[2023-04-01] MEDS ORDERED: MORPHINE SULFATE 2 MG/ML SYRINGE IVP PRN (23:03)
--- NOTE | 2023-04-01 23:18 | P.OP ---
Date of Procedure: 04/01/23 Preoperative Diagnosis: Right lower extremity critical limb ischemia Right superficial femoral and popliteal artery occlusion Right 5th toe gangrene Postoperative Diagnosis: Same Procedure(s) Performed: Right femoral artery endarterectomy with patch angioplasty Right distal popliteal artery endarterectomy and patch angioplasty Right femoral to below-knee popliteal artery bypass with in situ greater saphenous vein graft Right fifth toe amputation Anesthesia: GETA Surgeon: Moy Pollard Estimated Blood Loss (ml): 200 Pathology: other (femoral plaque and popliteal plaque) Condition: stable Disposition: PACU Indications for Procedure: 77-year-old gentleman who was seen in the office recently for right fifth toe dry gangrene and increase pain, claudication with rest pain. He recently underwent angiogram with attempt at revascularization but was found to have a complete occlusion of his superficial femoral artery with reconstitution below- knee popliteal, tibial peroneal trunk. He presented to the hospital secondary to worsening pain in his foot as well as his dry gangrene has started to drain serous fluid. Due to his critical limb ischemia and worsening wounds he presents to the operating room for right femoral to below-knee popliteal artery bypass with in situ vein and fifth toe amputation. Operative Findings: Severely calcified femoral and distal popliteal artery Description of Procedure: Operative narrative: After written and informed consent was obtained from the patient all risks benefits and competitions were described the patient is brought to the operative suite and laid in a supine position. The area of the abdomen, right lower extremity was prepped and draped in usual sterile fashion after appropriate anesthetic was performed per the anesthesiologist. A timeout was performed in normal fashion. Antibiotics were administered prior to incision. A oblique incision was created at the right groin and dissection was carried down to the common femoral artery. The common femoral, superficial femoral and profundus femoris arteries were dissected free in a circumferential manner and controlled with vessel loops. Attention was then placed to the greater saphenous vein which was dissected free up to the saphenofemoral junction. A vessel loop was then placed around this area. Attention was then placed distally and a transverse incision was created on the medial aspect of the lower leg just below the knee with a 15 blade scalpel. Dissection was then carried down with electrocautery through the fascia to the popliteal artery. Popliteal artery, tibioperoneal trunk was then dissected free in a circumferential manner and controlled with vessel loops. The anterior tibial artery was also dissected free and visualized. Once controlled attention was then placed to dissection of the greater saphenous vein. Meticulous dissection was then performed of the greater saphenous vein and controlled with a blue vessel loop. Patient was then administered heparin and followed with serial ACTs. The proximal greater saphenous vein was then resected and suture ligated at the saphenofemoral junction. The vein was then brought over to the femoral artery and the artery was clamped both proximally and distally. Arteriotomy was then created with 11 blade scalpel and extended with Pott Corbett scissors. Due to the dense calcifications and occlusion of the common femoral and superficial femoral artery and endarterectomy was performed removing large amount of calcific plaque. Eversion technique was performed on the profunda removing a large dense plaque with good backbleeding noted. The superficial femoral artery was completely occluded without any evidence of backbleeding. End-to-side anastomosis was then created with 6-0 Prolene suture in a running fashion after the vein was dilated with serial dilation. Good backbleeding was noted from the vein and good brisk forward bleeding was noted from the artery. Final sutures were then placed good pulsatile blood flow was noted within the vein bypass. The vein was then ligated distally and utilizing a valvulotome the valves were destroyed up to the proximal aspect at the previous anastomosis until there was good pulsatile bleeding noted through the bypass. The tibial peroneal trunk was then controlled and arteriotomy was created with 11 blade scalpel and extended with Pott Corbett scissors. There was dense plaque noted to the bifurcation of the anterior tibial and tibioperoneal trunk. Endarterectomy was then performed with removal of all dense calcific plaque. A patch angioplasty was then performed with 6-0 Prolene suture in a running fashion. There was good backbleeding noted. Patch out of he was then created and the vein was then spatulated and an end-to-side anastomosis was created with 6-0 Prolene suture in a running fashion. Prior to last sutures being placed backbleeding was once again assessed which was adequate and proximal control was released revealing good pulsatile blood flow. Final sutures were placed and good pulsatile blood flow was noted within the bypass. Doppler signals were then noted distal to the bypass and were multiphasic and patient had a palpable PT pulse. The areas were then copiously irrigated with antibiotic solution. The incisions were then closed in a multilayer fashion after hemostasis was assured with Surgicel and the skin was then cleansed and dressings were placed. Attention was then placed to the fifth toe and a racquet incision was created around the fifth toe and dissection was carried down to the metatarsal bone with electrocautery. The bone was then excised and removed out the field in normal fashion. The area was copiously irrigated no purulent drainage was noted. Once hemostatic the incision was then closed with 3-0 nylon suture in a vertical mattress fashion and dressed with 4 x 4 and Kerlix. The patient tolerated procedure well was sent to PACU for recovery.
[2023-04-01 23:22] LABS: Glucose,Whole Blood 192 mg/dL (70-110)
[2023-04-02] MEDS: PIPERACILLIN-TAZOBACTAM 3.375 GM in SODIUM CHLORIDE 0.9% 100 ML IVPB SCH ×4 (00:19→17:16)
[2023-04-02] MEDS: CLOPIDOGREL 75 MG TAB PO SCH ×2 (00:22→20:55)
[2023-04-02] MEDS: ATORVASTATIN 40 MG TAB PO SCH ×2 (00:22→20:55)
[2023-04-02] MEDS: INSULIN ASPART (NovoLOG) 100 UNIT/ML VIAL SQ SCH ×5 (00:22→20:55)
[2023-04-02] MEDS: METOPROLOL SUCCINATE (ER) 25 MG TAB.ER.24H PO SCH ×2 (00:23→20:55)
[2023-04-02] MEDS: GABAPENTIN 300 MG CAP PO SCH ×4 (00:23→20:55)
[2023-04-02] MEDS: HEPARIN SODIUM,PORCINE/PF 5,000 UNIT/0.5 ML SYRINGE SQ SCH ×3 (00:25→16:04)
[2023-04-02 06:20] LABS: Glucose,Whole Blood 262 mg/dL (70-110)
[2023-04-02] MEDS: LEVOTHYROXINE 88 MCG TAB PO SCH (06:23)
[2023-04-02] MEDS: EZETIMIBE 10 MG TAB PO SCH (08:51)
[2023-04-02] MEDS: ASPIRIN 81 MG PO SCH (08:51)
[2023-04-02] MEDS: lisinopriL 20 MG TAB PO SCH (08:51)
[2023-04-02] MEDS: amLODIPine 10 MG TAB PO SCH (08:51)
[2023-04-02] MEDS: ACETAMINOPHEN TAB 325 MG TAB PO PRN ×2 (08:51→16:04)
[2023-04-02 09:18] LABS: HCT 34.7 % (39.0-53.0); HGB 10.9 gm/dL (13.0-17.5); Hypochromasia Moderate; MCHC 31.5 g/dL (31.0-37.0); MCV 95.3 fL (80.0-100.0); Mean Platelet Volume 8.7; Platelet Count 162 k/uL (150-450); RBC 3.64 m/uL (4.30-5.90); RDW 15.6 % (11.5-15.5); WBC 10.2 k/uL (3.8-10.6)
[2023-04-02 09:34] LABS: African American GFR (CKD) 43 (>60 ml/min/1.73 sqM); Non-African American GFR(CKD) 38 (>60 ml/min/1.73 sqM)
[2023-04-02 09:36] LABS: African American GFR (CKD) 44 (>60 ml/min/1.73 sqM); Anion Gap 11 mmol/L; Blood Urea Nitrogen 30 mg/dL (9-20); Calcium 8.2 mg/dL (8.4-10.2); Carbon Dioxide 19 mmol/L (22-30); Chloride 107 mmol/L (98-107); Glucose 261 mg/dL (74-99); Non-African American GFR(CKD) 38 (>60 ml/min/1.73 sqM); Potassium 4.8 mmol/L (3.5-5.1); Sodium 137 mmol/L (137-145)
[2023-04-02 11:16] LABS: Glucose,Whole Blood 294 mg/dL (70-110)
[2023-04-02] MEDS: HYDROcodone/APAP 5-325MG 1 EACH TAB PO PRN ×2 (12:25→17:59)
[2023-04-02] MEDS: VANCOMYCIN 1,500 MG in SODIUM CHLORIDE 0.9% 500 ML 500 ML IVPB SCH (13:47)
[2023-04-02 14:13] VITALS: BMI 33.4
--- NOTE | 2023-04-02 15:30 | P.PN ---
Subjective Progress Note Date: 04/02/23 Principal diagnosis: Right gangrene toe, peripheral arterial disease She was seen and examined today as a follow-up. Yesterday he underwen right femoral artery endarterectomy with patch angioplasty, right distal popliteal artery endarterectomy and patch angioplasty, right femoral to [id number] popliteal artery bypass with in situ greater saphenous vein graft, and a right fifth toe amputation. Today he states pain to his foot is improved. He denies any shortness of breath, chest pain, abdominal pain, nausea or vomiting. Denies any fevers or chills. Sensorimotor is intact and right lower extremity. He has been on bedrest, Mast catheter still in place with good urine output. He's been afebrile. WBC 10.2 Hemoglobin 10.9. Objective - Vital Signs Vital signs: Vital Signs Temp 98.4 F 04/02/23 08:45 Pulse 85 04/02/23 08:45 Resp 18 04/02/23 08:45 BP 142/66 04/02/23 08:45 Pulse Ox 96 04/02/23 08:45 FiO2 Intake & Output 04/01/23 04/02/23 04/02/23 18:59 06:59 18:59 Intake Total 1502 400 225 Output Total 800 750 Balance 702 -350 225 Intake: IV 1502 400 Oral 225 Output: Urine 600 750 Estimated Blood Loss 200 Other: Voiding Method Indwelling Catheter Indwelling Catheter - Exam General appearance: The patient is alert, oriented, appears in no acute distress. HET: Head is normocephalic and atraumatic. Pupils are equal and reactive. Neck: Supple. Heart: Regular. Lungs: Equal expansion, normal respiratory effort. Abdomen: Soft, nontender, nondistended. Extremities: Right pedal edema, right foot with dressing clean dry and intact. Right groin with prevena dressing in place, right lower extremity medial aspect with dressing clean dry and intact. Palpable bypass at popliteal, positive dorsalis pedis and posterior tibialis Doppler signal. Lower extremity warm to the touch with good capillary refill. Neurological: No focal deficits. Sensorimotor intact. R - Labs CBC & Chem 7: 04/02/23 08:38 04/02/23 08:38 Labs: Abnormal Lab Results - Last 24 Hours (Table) 04/01/23 04/01/23 04/01/23 Range/Units 11:41 18:51 23:20 RBC (4.30-5.90) m/uL Hgb (13.0-17.5) gm/dL Hct (39.0-53.0) % RDW (11.5-15.5) % Carbon Dioxide (22-30) mmol/L BUN (9-20) mg/dL Creatinine (0.66-1.25) mg/dL Glucose (74-99) mg/dL POC Glucose (mg/dL) 130 H 114 H 192 H (70-110) mg/dL Calcium (8.4-10.2) mg/dL 04/02/23 04/02/23 04/02/23 Range/Units 06:18 08:38 08:38 RBC 3.64 L (4.30-5.90) m/uL Hgb 10.9 L (13.0-17.5) gm/dL Hct 34.7 L (39.0-53.0) % RDW 15.6 H (11.5-15.5) % Carbon Dioxide (22-30) mmol/L BUN (9-20) mg/dL Creatinine 1.71 H (0.66-1.25) mg/dL Glucose (74-99) mg/dL POC Glucose (mg/dL) 262 H (70-110) mg/dL Calcium (8.4-10.2) mg/dL 04/02/23 Range/Units 08:38 RBC (4.30-5.90) m/uL Hgb (13.0-17.5) gm/dL Hct (39.0-53.0) % RDW (11.5-15.5) % Carbon Dioxide 19 L (22-30) mmol/L BUN 30 H (9-20) mg/dL Creatinine 1.70 H (0.66-1.25) mg/dL Glucose 261 H (74-99) mg/dL POC Glucose (mg/dL) (70-110) mg/dL Calcium 8.2 L (8.4-10.2) mg/dL Microbiology - Last 24 Hours (Table) 03/31/23 11:25 Blood Culture - Preliminary Blood 03/31/23 11:10 Blood Culture - Preliminary Blood Assessment and Plan Assessment: 1. Postop day #1 for right femoral artery endarterectomy with patch angioplasty, right distal popliteal artery endarterectomy with patch angioplasty, right femoral to below-knee popliteal bypass with in situ vein and right fifth toe amputation 2. Right lower extremity critical limb ischemia 3. Right SFA and popliteal artery occlusion 4. Gangrene right fifth toe 5. Diabetes mellitus 6. Coronary artery disease status post CABG 7. Hypertension 8. Hyperlipidemia 9. Chronic renal disease Plan: 1. Continue supportive care 2. Discontinue Mast catheter 3. Encourage ambulation 4. Keep Prevena dressing in place for six more days 5. Continue aspirin and Plavix 6. There were signs of infection at amputation site, no need for continued antibiotics 7. Anticipate discharge tomorrow Thank you for this consultation, we will continue to follow. The impression and plan of care has been dictated as directed. Dr. Mast I performed a history and examination of this patient, discussed the same with the dictator. I agree with the dictator's note ,documented as a scribe. Any additional findings or plans will be noted.
[2023-04-02 16:14] LABS: Glucose,Whole Blood 252 mg/dL (70-110)
--- NOTE | 2023-04-02 16:22 | P.PN ---
Subjective Progress Note Date: 04/02/23 (delayed charting seen at 0930) Patient is a 77-year-old male with known peripheral arterial disease, coronary artery disease status post CABG, hypertension, diabetes mellitus type 2 on oral medications, dyslipidemia, and multiple other comorbid conditions who presented to the hospital with worsening of his right foot fifth digit pain and odor. Of note patient was recently released seen at [facility] for the same and had an intervention done on his right leg. On arrival to the ER here his initial vital signs were essentially within normal limits. Laboratory analysis was rebecca rkable for BUN 30, creatinine 1.7 at 9 with GFR 36, glucose 132. X-ray of the right foot shows soft tissue edema of the fifth digit with localized demineralization of the fifth phalanx suspicious for osteomyelitis. He underwent right fem-pop bypass, thrombectomy, and right fifth toe amputation on 04/01/23. Patient seen and examined at bedside. He is doing well today. He has no complaints currently. He had some pain early this morning but it has subsided. He is wanting to get up and ambulate. Vital signs reviewed General: nontoxic, no distress, appears at stated age Cardiovascular: S1S2 reg, no murmur Lungs: CTA bilateral, no rhonchi, no rales , no accessory muscle use Abdominal: soft, nontender to palpation, no guarding, no appreciable organomegaly Ext: no gross muscle atrophy, trace edema b/l lower extremities, no contractures, Prevana in place and dressing in place right foot. Neuro: CN II-XI grossly intact, no focal neuro deficits Psych: Alert, oriented, appropriate affect Assessment/Plan: Severe peripheral arterial disease of the right lower extremity with gangrene of the right fifth toe and probable osteomyelitis - S/P Right femoral-popliteal bypass and thrombectomy with amputation of the right fifth toe - Patient's case discussed with vascular surgery AUTOMOTIVE TIRE TESTER. Margins at area of amputation were clean without signs of infection. Patient should not need continued antibiotics on discharge. Prevana for 6 more days. - Continue with IV Zosyn and IV vancomycin. D #3 Continue with checking creatinine and Vanco trough levels to monitor for renal toxicity. - no need for IV abx at discharge. Diabetes type II with Hyperglycemia -Likely related to postoperative phase. A1c is 8.1 which the patient states is his typical. -I have asked him to take a.m. fasting blood sugars the next 2 weeks and to make an appointment with his primary care provider Claritza Stokes at [facility]. Hypertension -Follow blood pressures -Continue with metoprolol 12.5 mg at night Acute blood loss anemia - anticipated outcome of surgery - no indication for transfusion - follow CBC Chronic: CAD status post CABG Dyslipidemia Hypothyroidism Imaging: None new reviewed. Data Review: Labs reviewed and remarkable for hemoglobin 10.9, carbon dioxide 19, BUN 30, cr eatinine 1.7 A1c 8.1 DVT prophylaxis: Heparin Anticipated discharge date: Pending Clinical course Anticipated discharge place: Pending Clinical course This dictation was prepared using [employer] voice recognition software. Though every attempt is made to correct errors during dictation some may still exist. Objective - Vital Signs Vital signs: Vital Signs Temp 98.4 F 04/02/23 08:45 Pulse 81 04/02/23 11:35 Resp 17 04/02/23 11:35 BP 136/63 04/02/23 11:35 Pulse Ox 97 04/02/23 11:35 FiO2 Intake & Output 04/01/23 04/02/23 04/02/23 18:59 06:59 18:59 Intake Total 1502 400 450 Output Total 800 750 700 Balance 702 -350 -250 Weight 93.894 kg Intake: IV 1502 400 Oral 450 Output: Urine 600 750 700 Estimated Blood Loss 200 Other: Voiding Method Indwelling Catheter Indwelling Catheter - Labs CBC & Chem 7: 04/02/23 08:38 04/02/23 08:38 Labs: Abnormal Lab Results - Last 24 Hours (Table) 04/01/23 04/01/23 04/02/23 Range/Units 18:51 23:20 06:18 RBC (4.30-5.90) m/uL Hgb (13.0-17.5) gm/dL Hct (39.0-53.0) % RDW (11.5-15.5) % Carbon Dioxide (22-30) mmol/L BUN (9-20) mg/dL Creatinine (0.66-1.25) mg/dL Glucose (74-99) mg/dL POC Glucose (mg/dL) 114 H 192 H 262 H (70-110) mg/dL Calcium (8.4-10.2) mg/dL 04/02/23 04/02/23 04/02/23 Range/Units 08:38 08:38 08:38 RBC 3.64 L (4.30-5.90) m/uL Hgb 10.9 L (13.0-17.5) gm/dL Hct 34.7 L (39.0-53.0) % RDW 15.6 H (11.5-15.5) % Carbon Dioxide 19 L (22-30) mmol/L BUN 30 H (9-20) mg/dL Creatinine 1.71 H 1.70 H (0.66-1.25) mg/dL Glucose 261 H (74-99) mg/dL POC Glucose (mg/dL) (70-110) mg/dL Calcium 8.2 L (8.4-10.2) mg/dL 04/02/23 04/02/23 Range/Units 11:15 16:13 RBC (4.30-5.90) m/uL Hgb (13.0-17.5) gm/dL Hct (39.0-53.0) % RDW (11.5-15.5) % Carbon Dioxide (22-30) mmol/L BUN (9-20) mg/dL Creatinine (0.66-1.25) mg/dL Glucose (74-99) mg/dL POC Glucose (mg/dL) 294 H 252 H (70-110) mg/dL Calcium (8.4-10.2) mg/dL Microbiology - Last 24 Hours (Table) 03/31/23 11:25 Blood Culture - Preliminary Blood 03/31/23 11:10 Blood Culture - Preliminary Blood
[2023-04-02 20:16] LABS: Glucose,Whole Blood 293 mg/dL (70-110)
[2023-04-02] MEDS ORDERED: DAPAGLIFLOZIN PROPANEDIOL 10 MG TABLET PO SCH (21:00)
[2023-04-03] MEDS: HEPARIN SODIUM,PORCINE/PF 5,000 UNIT/0.5 ML SYRINGE SQ SCH ×2 (00:15→08:59)
[2023-04-03] MEDS: PIPERACILLIN-TAZOBACTAM 3.375 GM in SODIUM CHLORIDE 0.9% 100 ML IVPB SCH ×2 (00:15→08:59)
[2023-04-03 06:22] LABS: Glucose,Whole Blood 189 mg/dL (70-110)
[2023-04-03] MEDS: LEVOTHYROXINE 88 MCG TAB PO SCH (06:26)
[2023-04-03] MEDS: INSULIN ASPART (NovoLOG) 100 UNIT/ML VIAL SQ SCH ×2 (06:26→12:20)
[2023-04-03 08:01] LABS: HCT 29.4 % (39.0-53.0); HGB 9.7 gm/dL (13.0-17.5); Hypochromasia Slight; MCH 30.5 pg (25.0-35.0); MCHC 32.8 g/dL (31.0-37.0); Mean Platelet Volume 8.9; Platelet Count 154 k/uL (150-450); RBC 3.16 m/uL (4.30-5.90); RDW 15.6 % (11.5-15.5); WBC 8.4 k/uL (3.8-10.6)
[2023-04-03 08:21] LABS: African American GFR (CKD) 36 (>60 ml/min/1.73 sqM); Anion Gap 7 mmol/L; Blood Urea Nitrogen 31 mg/dL (9-20); Calcium 8.2 mg/dL (8.4-10.2); Carbon Dioxide 25 mmol/L (22-30); Chloride 108 mmol/L (98-107); Glucose 155 mg/dL (74-99); Non-African American GFR(CKD) 31 (>60 ml/min/1.73 sqM); Potassium 4.6 mmol/L (3.5-5.1); Sodium 140 mmol/L (137-145)
[2023-04-03] MEDS: GABAPENTIN 300 MG CAP PO SCH (08:59)
[2023-04-03] MEDS: lisinopriL 20 MG TAB PO SCH (08:59)
[2023-04-03] MEDS: ASPIRIN 81 MG PO SCH (08:59)
[2023-04-03] MEDS: amLODIPine 10 MG TAB PO SCH (08:59)
[2023-04-03] MEDS: EZETIMIBE 10 MG TAB PO SCH (08:59)
[2023-04-03 09:17] VITALS: BP 140/62; PULSE 85; RESP 16; TEMP 98.8
[2023-04-03 11:34] LABS: Glucose,Whole Blood 189 mg/dL (70-110)
[2023-04-03] MEDS: VANCOMYCIN 1,500 MG in SODIUM CHLORIDE 0.9% 500 ML 500 ML IVPB SCH (12:21)
--- NOTE | 2023-04-03 12:25 | P.DS ---
Providers Date of admission: 03/31/23 12:09 Expected date of discharge: 04/03/23 Attending physician: Fan Diaz MD Consults: 03/31/23 12:18 Consult Physician Urgent Consulting Provider: Moy Pollard Consult Reason/Comments: Gangrene, osteomyelitis Do you want consulting provider notified?: Already Contacted Primary care physician: [facility] Hospital Course: Discharge Diagnosis: Severe peripheral arterial disease of the right lower extremity with gangrene of the right fifth toe and probable osteomyelitis Diabetes type II with Hyperglycemia Hypertension Acute blood loss anemia Hx of CAD status post CABG Dyslipidemia Hypothyroidism Hospital Course: 77-year-old male with known peripheral arterial disease, coronary artery disease status post CABG, hypertension, diabetes mellitus type 2 on oral medications, dyslipidemia, and multiple other comorbid conditions who presented to the hospital with worsening of his right foot fifth digit pain and odor. Of note patient was recently released seen at [facility] for the same and had an intervention done on his right leg. On arrival to the ER here his initial vital signs were essentially within normal limits. Laboratory analysis was remarkable for BUN 30, creatinine 1.7 at 9 with GFR 36, glucose 132. X-ray of the right foot shows soft tissue edema of the fifth digit with localized demineralization of the fifth phalanx suspicious for osteomyelitis. He underwent right fem-pop bypass, thrombectomy, and right fifth toe amputation on 04/01/23. Margins at area of amputation were clean without signs of infection. Patient being discharged without antibiotics, and prevana for 6 days. Follow-up with vascular surgery. Renal function slightly worse, creatinine was 2.02 at the time of discharge. Glipizide decreased to 10 mg twice a day. Patient to follow-up with his primary for repeat BMP and further adjustments to his anti-diabetic medications. Patient seen and examined at bedside. Vital signs reviewed and stable. General: nontoxic, no distress, appears at stated age Derm: warm, dry, right foot dressing clean, dry, intact Head: atraumatic, normocephalic, symmetric Eyes: EOMI, no lid lag, anicteric sclera Mouth: no lip lesion, mucus membranes moist Cardiovascular: S1S2 reg, no murmur Lungs: CTA bilateral, no rhonchi, no rales , no accessory muscle use Abdominal: soft, nontender to palpation, no guarding, no appreciable organomegaly Ext: no gross muscle atrophy, no edema, no contractures Neuro: CN II-XI grossly intact, no focal neuro deficits Psych: Alert, oriented, appropriate affect A total of 36 minutes of time were spent preparing this complex discharge summary. Patient was discharged on 04/03/23 at 10:33. Patient Condition at Discharge: Stable Plan - Discharge Summary New Discharge Prescriptions: New glipiZIDE [Glucotrol] 10 mg PO AC-BID #60 tablet Aspirin 81 mg PO DAILY tab HYDROcodone/APAP 5-325MG [Smithers 5-325] 1 each PO Q4HR PRN #12 tab PRN Reason: Moderate Pain (Scale 4 To 6) Continue Clopidogrel [Plavix] 75 mg PO HS amLODIPine [Norvasc] 10 mg PO DAILY Levothyroxine Sodium [Synthroid] 88 mcg PO DAILY Empagliflozin [Jardiance] 25 mg PO HS lisinopriL [Zestril] 40 mg PO DAILY Gabapentin [Neurontin] 300 mg PO TID Rosuvastatin [Crestor] 20 mg PO HS Metoprolol Succinate (ER) [Toprol XL] 12.5 mg PO HS Ezetimibe [Zetia] 10 mg PO DAILY Discontinued glipiZIDE [Glucotrol] 20 mg PO BID-W/MEALS Discharge Medication List Clopidogrel [Plavix] 75 mg PO HS 12/14/20 [History] Gabapentin [Neurontin] 300 mg PO TID 12/14/20 [History] amLODIPine [Norvasc] 10 mg PO DAILY 12/14/20 [History] Empagliflozin [Jardiance] 25 mg PO HS 03/31/23 [History] Ezetimibe [Zetia] 10 mg PO DAILY 03/31/23 [History] Levothyroxine Sodium [Synthroid] 88 mcg PO DAILY 03/31/23 [History] Metoprolol Succinate (ER) [Toprol XL] 12.5 mg PO HS 03/31/23 [History] Rosuvastatin [Crestor] 20 mg PO HS 03/31/23 [History] lisinopriL [Zestril] 40 mg PO DAILY 03/31/23 [History] Aspirin 81 mg PO DAILY tab 04/03/23 [Rx] HYDROcodone/APAP 5-325MG [Smithers 5-325] 1 each PO Q4HR PRN #12 tab 04/03/23 [Rx] glipiZIDE [Glucotrol] 10 mg PO AC-BID #60 tablet 04/03/23 [Rx] Follow up Appointment(s)/Referral(s): Moy Pollard DO [STAFF PHYSICIAN] - 04/22/23 8:45 am [facility],Infusion [NON-STAFF] - 1 Week [facility], [REFERRING] - 1 Week [facility],Clinic [Primary Care Provider] - 1-2 days (Office to call with appointment date and time.) Patient Instructions/Handouts: Acute Kidney Injury (DC), Peripheral Artery Disease (DC), Remote Superficial Femoral Artery Endarterectomy (DC) Activity/Diet/Wound Care/Special Instructions: Please see your PCP. You will need repeat kidney function testing within 3-4 days and adjustment to your BP and diabetes meds. No driving until cleared by surgeon Avoid heavy lifting greater than 10 lbs , pushing, pulling, straining, flights of stairs until cleared by surgeon Sponge bath only until right groin dressing comes off. Then may shower but no tub bathing or soaking until cleared by surgeon signs of infection ie: fever, rash, drainage from puncture site, swelling contact doctor or return to ER immediately. Heavy bleeding from surgical site apply firm direct pressure and return to ER. Do not attempt to drive self. low sodium/low fat diet Keep Prevena on until 04/08/2023 then remove and throw away Discharge Disposition: HOME WITH HOME HEALTH SERVICES
--- NOTE | 2023-04-03 12:37 | P.PN ---
Subjective Progress Note Date: 04/03/23 Principal diagnosis: Right gangrene toe, peripheral arterial disease She was seen and examined today as a follow-up. He is postop day #2 for right femoral artery endarterectomy with patch angioplasty, right distal popliteal artery endarterectomy and patch angioplasty, right femoral to moylh-vgl-gite popliteal artery bypass with in situ greater saphenous vein graft, and a right fifth toe amputation. Yesterday his Mast catheter was removed, he is voiding well. He has been up and ambulating. Pain has improved. He's been afebrile. Denies any shortness of breath or chest pain. Objective - Vital Signs Vital signs: Vital Signs Temp 98.8 F 04/03/23 08:55 Pulse 85 04/03/23 08:55 Resp 16 04/03/23 08:55 BP 140/62 04/03/23 08:55 Pulse Ox 97 04/03/23 08:55 FiO2 Intake & Output 04/02/23 04/03/23 04/03/23 18:59 06:59 18:59 Intake Total 690 120 Output Total 700 Balance -10 120 Weight 93.894 kg Intake: Oral 690 120 Output: Urine 700 Other: Voiding Method Indwelling Catheter Toilet Urinal # Voids 1 - Exam General appearance: The patient is alert, oriented, appears in no acute d istress. HET: Head is normocephalic and atraumatic. Pupils are equal and reactive. Neck: Supple. Heart: Regular. Lungs: Equal expansion, normal respiratory effort. Abdomen: Soft, nontender, nondistended. Extremities: Right pedal edema, right foot with dressing clean dry and intact. Dressing removed, surgical incision site well approximated with sutures. Right groin with prevena dressing in place, right lower extremity medial incision well approximated without any surrounding redness or drainage. Palpable bypass at popliteal, positive dorsalis pedis and posterior tibialis Doppler signal. Lower extremity warm to the touch with good capillary refill. Neurological: No focal deficits. Sensorimotor intact. R - Labs CBC & Chem 7: 04/03/23 07:15 04/03/23 07:15 Labs: Abnormal Lab Results - Last 24 Hours (Table) 04/02/23 04/02/23 04/02/23 Range/Units 11:15 16:13 20:14 RBC (4.30-5.90) m/uL Hgb (13.0-17.5) gm/dL Hct (39.0-53.0) % RDW (11.5-15.5) % Chloride (98-107) mmol/L BUN (9-20) mg/dL Creatinine (0.66-1.25) mg/dL Glucose (74-99) mg/dL POC Glucose (mg/dL) 294 H 252 H 293 H (70-110) mg/dL Calcium (8.4-10.2) mg/dL 04/03/23 04/03/23 04/03/23 Range/Units 06:21 07:15 07:15 RBC 3.16 L (4.30-5.90) m/uL Hgb 9.7 L (13.0-17.5) gm/dL Hct 29.4 L (39.0-53.0) % RDW 15.6 H (11.5-15.5) % Chloride 108 H (98-107) mmol/L BUN 31 H (9-20) mg/dL Creatinine 2.02 H (0.66-1.25) mg/dL Glucose 155 H (74-99) mg/dL POC Glucose (mg/dL) 189 H (70-110) mg/dL Calcium 8.2 L (8.4-10.2) mg/dL Microbiology - Last 24 Hours (Table) 03/31/23 11:25 Blood Culture - Preliminary Blood 03/31/23 11:10 Blood Culture - Preliminary Blood Assessment and Plan Assessment: 1. Postop day #2 for right femoral artery endarterectomy with patch angioplasty, right distal popliteal artery endarterectomy with patch angioplasty, right femoral to below-knee popliteal bypass with in situ vein and right fifth toe amputation 2. Right lower extremity critical limb ischemia 3. Right SFA and popliteal artery occlusion 4. Gangrene right fifth toe 5. Diabetes mellitus 6. Coronary artery disease status post CABG 7. Hypertension 8. Hyperlipidemia 9. Chronic renal disease Plan: 1. Continue supportive care 2. Encourage ambulation 3. Keep Prevena dressing in place for six more days 4. Continue aspirin and Plavix 5. There were no signs of infection at amputation site, no need for continued antibiotics 6. Patient is cleared for discharge. Thank you for this consultation, we will continue to follow. The impression and plan of care has been dictated as directed. Dr. Mast I performed a history and examination of this patient, discussed the same with the dictator. I agree with the dictator's note ,documented as a scribe. Any additional findings or plans will be noted.
[2023-04-04] MEDS ORDERED: VANCOMYCIN TROUGH DUE 1 EACH MISC MISCELLANE ONE (11:00)
== END 2023-04-03 13:05 | disposition home health service (06) | DRG 253 ==
LOC: EC 10:19 → 5NMEDONC 12:09 → 3SCARD 04-01 21:07 → 5NMEDONC 04-01 21:11 → 3SCARD 04-01 21:38
PROVIDERS: ADMIT Student in an Organized Health Care Education/Training Program; ATTEND Student in an Organized Health Care Education/Training Program
PROC: 0Y6X0Z0 Detachment at Right 5th Toe, Complete, Open Approach (ICD-10-PCS; 2023-04-01)
PROC: 06BP0ZZ Excision of Right Saphenous Vein, Open Approach (ICD-10-PCS; 2023-04-01)
PROC: 041K09L Bypass Right Femoral Artery to Popliteal Artery with Autologous Venous Tissue, Open Approach (ICD-10-PCS; 2023-04-01)
PROC: 04UK07Z Supplement Right Femoral Artery with Autologous Tissue Substitute, Open Approach (ICD-10-PCS; 2023-04-01)
PROC: 04CK0ZZ Extirpation of Matter from Right Femoral Artery, Open Approach (ICD-10-PCS; principal; 2023-04-01 11:45)
PROC: 04CM0ZZ Extirpation of Matter from Right Popliteal Artery, Open Approach (ICD-10-PCS; 2023-04-01 11:45)
DX: E11.52 Type 2 diabetes mellitus with diabetic peripheral angiopathy with gangrene (principal); D62 Acute posthemorrhagic anemia; I70.261 Atherosclerosis of native arteries of extremities with gangrene, right leg; M86.171 Other acute osteomyelitis, right ankle and foot; E11.69 Type 2 diabetes mellitus with other specified complication; E11.65 Type 2 diabetes mellitus with hyperglycemia; I10 Essential (primary) hypertension; N18.9 Chronic kidney disease, unspecified; E03.9 Hypothyroidism, unspecified; I25.10 Atherosclerotic heart disease of native coronary artery without angina pectoris; E78.5 Hyperlipidemia, unspecified; N28.89 Other specified disorders of kidney and ureter; R60.0 Localized edema; T38.3X5S Adverse effect of insulin and oral hypoglycemic [antidiabetic] drugs, sequela; Z95.2 Presence of prosthetic heart valve; Z79.84 Long term (current) use of oral hypoglycemic drugs; Z79.890 Hormone replacement therapy; Z79.02 Long term (current) use of antithrombotics/antiplatelets; Z79.891 Long term (current) use of opiate analgesic; Z79.899 Other long term (current) drug therapy; Z95.1 Presence of aortocoronary bypass graft; Z87.891 Personal history of nicotine dependence; Z28.311 Partially vaccinated for COVID-19
CPT/HCPCS: 36415; 80048; 80053; 82565; 83036; 83605; 85025; 85027; 85610; 85652; 85730; 86140; 86850; 86900; 86901; 87040; 88304; 88311; 93005; 96365; 96366; 96368; 99285

== ENCOUNTER → 2024-09-03 | Day surgery (SDC) | payer MEDICARE, OTHER ==
[~2024-09-03] MED LIST changes: +ALPRAZolam 0.5 MG TAB PO PRN; -ASPIRIN 325 MG TAB PO PRN; -HEPARIN SODIUM 1,000 UN/ML (10ML VL) ONE; +HEPARIN SODIUM,PORCINE (1 ML) 2,500 UNIT in SODIUM CHLORIDE 0.9% 250 ML IRRIGATION PRN; +HEPARIN SODIUM,PORCINE 10,000 UNIT in SODIUM CHLORIDE 0.9% 1,000 ML IRRIGATION PRN; -INSULIN ASPART (NovoLOG) 100 UNIT/ML VIAL SQ ONE; -IOPAMIDOL-250 100ML BTL INTRAARTER ONE; -LIDOCAINE 1% INJ 10MG/ML (20 ML MDV) ONE; -LIDOCAINE 1% INJ 10MG/ML (20 ML MDV) SQ ONE; -SODIUM CHLORIDE 0.9% 1,000 ML IV ONE; -SODIUM CHLORIDE 0.9% 1,000 ML in EMPTY BAG 1 BAG IV ONE; +ZOLPIDEM 5 MG TAB PO PRN; -fentaNYL (PF) 50 MCG/ML 2 ML AMP IVP ONE; -fentaNYL (PF) 50 MCG/ML 2 ML AMP ONE
[2024-09-03] MEDS: EMPTY BAG 1 BAG with SODIUM CHLORIDE 0.9% 1,000 ML IV SCH (10:00)
[2024-09-03] MEDS: IV FLUID CONTINUATION 1,000 ML IV ONE (10:00)
[2024-09-03 10:07] LABS: Glucose,Whole Blood 116 mg/dL (70-110)
[2024-09-03 10:19] LABS: Anisocytosis Slight; Basophils # (A) 0.2 k/uL (0-0.2); Basophils % (A) 2 %; Eosinophils # (A) 0.2 k/uL (0-0.7); Eosinophils % (A) 2 %; HCT 42.8 % (39.0-53.0); HGB 13.7 gm/dL (13.0-17.5); Hypochromasia Slight; Lymphocytes # (A) 1.9 k/uL (1.0-4.8); Lymphocytes % (A) 19 %; MCH 28.9 pg (25.0-35.0); MCHC 31.9 g/dL (31.0-37.0); MCV 90.6 fL (80.0-100.0); Mean Platelet Volume 9.3; Monocytes # (A) 0.6 k/uL (0-1.0); Monocytes % (A) 6 %; Neutrophils # (A) 6.8 k/uL (1.3-7.7); Neutrophils % (A) 69 %; Platelet Count 188 k/uL (150-450); RBC 4.73 m/uL (4.30-5.90); RDW 17.3 % (11.5-15.5); WBC 9.9 k/uL (3.8-10.6)
[2024-09-03 10:29] VITALS: RESP 16; TEMP 97.7
[2024-09-03 10:35] LABS: African American GFR (CKD) 38 (>60 ml/min/1.73 sqM); Anion Gap 12 mmol/L; Blood Urea Nitrogen 38 mg/dL (9-20); Calcium 9.4 mg/dL (8.4-10.2); Carbon Dioxide 26 mmol/L (22-30); Chloride 105 mmol/L (98-107); Glucose 120 mg/dL (74-99); Non-African American GFR(CKD) 33 (>60 ml/min/1.73 sqM); Potassium 4.5 mmol/L (3.5-5.1); Sodium 143 mmol/L (137-145)
[2024-09-03] MEDS: fentaNYL (PF) 50 MCG/ML 2 ML AMP IVP ONE ×2 (13:17→13:21)
[2024-09-03] MEDS: MIDAZOLAM 2 MG/2 ML VIAL IVP ONE ×2 (13:17→13:21)
[2024-09-03] MEDS: HEPARIN SODIUM,PORCINE 10,000 UNIT in SODIUM CHLORIDE 0.9% 1,000 ML IRRIGATION ONE (13:18)
[2024-09-03] MEDS: LIDOCAINE 1% INJ 10MG/ML (20 ML MDV) SQ ONE (13:20)
[2024-09-03] MEDS: HEPARIN SODIUM 1,000 UN/ML (10ML VL) IVP ONE (13:43)
[2024-09-03] MEDS: IOPAMIDOL-370 100ML BTL INJ ONE (14:10)
--- NOTE | 2024-09-03 14:24 | P.OP ---
Date of Procedure: 09/03/24 Description of Procedure: Preoperative diagnosis: Claudication, right distal bypass stenosis Postop diagnosis: Claudication, right distal anastomotic stenosis greater than 90%, tibioperoneal trunk stenosis 80% Procedure: Aortogram with right lower extremity runoff via left common femoral artery access under ultrasound guidance Selective right lower extremity angiogram third order Percutaneous transluminal balloon angioplasty of the right distal femoral-tibial bypass stenosis Percutaneous transluminal balloon angioplasty of the right tibioperoneal trunk Surgeon: Atul Anesthesia: Moderate sedation times 49 minutes Estimated blood loss: Minimal Complications: None Condition: Stable Findings: Aorta: Patent without any significant stenosis Iliacs: Bilateral common iliac, internal iliac and external iliac arteries are patent without any significant stenosis Femorals: Right femoral artery is patent with some mild atherosclerotic disease. Bypass anastomosis is patent without any significant stenosis Tibials: Tibioperoneal trunk distal to the anastomosis as greater than 80% stenosis noted. Distal anastomotic stenosis noted just proximal to the anastomosis measuring 90%. Two-vessel runoff to the foot Operative narrative: After written informed consent was obtained the patient all risks benefits competitions were described the patient is brought to the Bore Miner Operator and laid in a supine position. The area of the left groin was prepped and draped in the usual sterile fashion. Local anesthesia with moderate sedation was performed with continuous pulse ox monitoring and EKG monitoring. Utilizing ultrasound the left common femoral artery was visualized and shown to be patent without any significant plaque. Utilizing a multipurpose needle under ultrasound guidance the artery was accessed. Guidewire was placed followed by 5 [place] sheath. 035 Glidewire was then placed into the aorta followed by pigtail catheter. Angiogram was then obtained of the aorta. RBI catheter was then placed and the right common iliac artery was accessed in an up and over fashion. Angiogram was then obtained of the right lower extremity demonstrating stenosis at the distal anastomosis and just distal to the anastomosis of the tibioperoneal trunk. 035 Glidewire advantage was then placed followed by a 55 cm 5 [place] sheath in an up and over fashion. 035 Glidewire was then placed across the lesion followed by quick cross catheter and distal angiogram was obtained demonstrating good intraluminal access across the lesion. Balloon angioplasty was then performed after patient was administered 3000 units of heparin. A 4 x 20 and 5 x 40 mm balloon was utilized to balloon across the trang stomosis with good visualization and resolution of the stenosis. 014 Glidewire advantage was then placed across the lesion distal in the tibioperoneal trunk and this area was ballooned with a 3 x 40 mm balloon. Once completed final angiogram was obtained demonstrating resolution of the stenotic areas with brisk flow noted to the foot and two-vessel runoff. Once completed all guidewires, catheters and sheaths were removed, short 5 [place] sheath was then placed after removal of the up and over sheath and a Vascade was placed in normal fashion and pressure was placed for hemostasis. Patient tolerated procedure well, had a palpable PT pulse on the right and was sent to PACU for recovery
--- NOTE | 2024-09-03 15:05 | IR ---
EXAMINATION TYPE: IR PLASTER AND STUCCO WORKER tibioperoneal branchs DATE OF EXAM: 09/03/2024 FLUOROSCOPY right leg pain, 15.6min fluoro, 51.4Gycm2, 356 images are submitted. [facility], , 09/03/2024 3:02 PM
[2024-09-03 16:11] VITALS: BP 152/71; PULSE 52
== END | disposition home or self-care (01) ==
LOC: CATHCVL 09:36
PROVIDERS: ATTEND Surgery
DX: I73.9 Peripheral vascular disease, unspecified (principal); T85.858A Stenosis due to other internal prosthetic devices, implants and grafts, initial encounter
CPT/HCPCS: 37224; 37228; 75625; 75710; 76937; 80048; 85025; C1894 ×3; C1769 ×5; C1725 ×2; C1887; C1760; J2250; J1644 ×2; J2003; J3010; Q9967

== ENCOUNTER → 2024-09-06 | Outpatient (CLI) | payer OTHER ==
--- NOTE | 2024-09-06 10:42 | CA ---
Stress Echo Report Ant Parmar Age: 78 Gender: M : 1945 Exam Date: 09/06/2024 09:26 Exam Location: [facility] Ht (in): 66 Wt (lb): 206 Ordering Physician: Collin Linda DO ([email or web address]) Referring Physician: COLLIN LINDA,, Director [employer]oplesoft: JOLENE Technologist Procedure CPT: Indication: I66.23R07.9 CHEST PAIN I25.10 I65.23 ICD-9 Codes: Rhythm: Patient History: Cardiac Medications: Medications in past 24 hours: Contrast: N/A Stress Results Protocol: Edward Total dose(mL): NA Exercise Duration (min:sec): 4:[address] Depression (mm): Angina Score: Lewis Score: METS: 5.2 Resting HR: 75 Resting BP: 146 / 42 Peak HR: 118 Peak BP: 200 / 81 Max Predicted HR: 141 84 % Max Predicted HR Target HR: 120 Double Product: [id number] Stress Summary: BP Response: Reason for Termination: Maximal effort/unable to continue Cardiac Symptoms: SHORTNESS OF BREATH ECG Analysis Resting ECG: Normal sinus rhythm Stress ECG: No abnormal ST/T wave changes with exercise Arrhythmia: None Echo Analysis Resting Echo: Normal global and segmental systolic function at rest. No resting regional wall motion abnormality Peak Echo Analysis: no obvious regional wall motion abnormalities with stress. Normal augmentation of global and segmental systolic function. MEASUREMENTS (Male/Female) Normal Values CONCLUSIONS Poor exercise tolerance, only achieving 5.2 METS Hypertensive Nonischemic ECG and echo response to exercise Overall normal treadmill echo stress test Dr Simon Mckeon (Electronically Signed) Final Date: 06 September 2024 10:42
--- NOTE | 2024-09-06 10:59 | MR ---
EXAMINATION TYPE: MR angio neck wo/w con DATE OF EXAM: 09/06/2024 10:40 AM COMPARISON: None. CLINICAL INDICATION: Male, 78 years old with history of I66.23R07.9 CHEST PAIN I25.10 I65.23, Chest p ain., TECHNIQUE: Multiplanar, multisequence images of the neck were obtained before and after administratio n of 9 mL intravenous Gadobutrol gadolinium contrast. Initial 2-D and 3-D noncontrast [id number] imaging was performed with 3-D reconstructions generated on a dedicated independent workstation. IV Contrast: 9 cc Gadobutrol (None if empty) FINDINGS: Susceptibility artifact related to prior median sternotomy. The vertebral arteries are codominant and patent throughout the course. Atherosclerotic narrowing at the right carotid bulb contributes to a moderate, just over 50% proximal right ICA stenosis. NASCET criteria is utilized. On the left, atherosclerotic change results in a mild, 30% narrowing at the carotid bulb. Conventional arch vessel branching anatomy. The common carotid arteries are patent. IMPRESSION: Moderate, just over 50% proximal right ICA stenosis. Mild, 30% proximal left ICA stenosis. [facility], , 09/06/2024 10:57 AM
== END | disposition home or self-care (01) ==
LOC: RADNMMAIN 08:36
PROVIDERS: ATTEND Internal Medicine
DX: I66.23 Occlusion and stenosis of bilateral posterior cerebral arteries (principal); I65.23 Occlusion and stenosis of bilateral carotid arteries
CPT/HCPCS: 93351; 70549; A9585

== ENCOUNTER → 2025-03-16 | Outpatient (CLI) | payer OTHER ==
[2025-03-16 15:21] LABS: HCT 42.1 % (39.6-50.0); HGB 12.5 g/dL (13.0-17.0); MCH 26.3 pg (27.0-32.0); MCHC 29.7 g/dL (32.0-37.0); MCV 88.4 FL (80.0-97.0); NRBC Per 100 WBC 0.05 X 10*3/uL (0.00-0.01); Platelet Count 367 X 10*3/uL (140-440); RBC 4.76 X 10*6/uL (4.40-5.60); RDW 19.9 % (11.5-14.5); WBC 10.51 X 10*3/uL (4.50-10.00)
[2025-03-16 15:55] LABS: NT-Pro-B-Type Natriuretic Pept 607 pg/mL (0-450)
[2025-03-16 22:31] LABS: Amylase 58 U/L (23-121)
[2025-03-16 22:32] LABS: Cholesterol 166.00 mg/dL (0.00-200.00); HDL Cholesterol 26.00 mg/dL (40.00-60.00); LDL Cholesterol,Calculated 109.8 mg/dL (0.0-131.0); Lipase 49 U/L (14-60); Triglycerides 151.00 mg/dL (0.00-149.00); VLDL Calculation 30.20 mg/dL (5.00-40.00)
[2025-03-17 00:07] LABS: ALT 137 U/L (10-49); AST 130 U/L (14-35); Albumin 3.8 g/dL (3.8-4.9); Albumin/Globulin Ratio 1.73 Ratio (1.60-3.17); Alkaline Phosphatase 428 U/L (41-126); Anion Gap 23.00 mmol/L (4.00-12.00); BUN/Creat Ratio 15.91 Ratio (12.00-20.00); Blood Urea Nitrogen 36.6 mg/dL (9.0-27.0); Calcium 7.8 mg/dL (8.7-10.3); Carbon Dioxide 15.0 mmol/L (21.6-31.8); Chloride 103 mmol/L (96-109); Globulin 2.2 g/dL (1.6-3.3); Glucose 200 mg/dL (70-110); Potassium 6.0 mmol/L (3.5-5.5); Sodium 141 mmol/L (135-145); Total Protein 6.0 g/dL (6.2-8.2)
== END | disposition home or self-care (01) ==
LOC: LABWHC1 09:38
PROVIDERS: ATTEND Nurse Practitioner Acute Care
DX: I25.10 Atherosclerotic heart disease of native coronary artery without angina pectoris (principal); R07.9 Chest pain, unspecified
CPT/HCPCS: 36415; 80053; 80061; 82150; 83690; 83880; 84443; 85027; 85652